=== PATIENT | female | born 1950 | race Caucasian/White ===

== ENCOUNTER 2018-05-29 18:07 | Inpatient (IN) | payer MEDICARE ==
[~2018-05-29 18:07] MED LIST: ISOVUE-370 76%-LOCM 1 ML ONE
[2018-05-29 18:42] LABS: #Basophils 0.1 thou/uL (0.0-0.2); #Eosinphils 0.1 thou/uL (0.0-0.7); #Lymphocytes 2.8 thou/uL (1.20-3.40); #Monocytes 1.2 thou/uL (0.11-0.59); #Neutrophils 8.5 thou/uL (1.40-6.50); %Basophils 0.5 % (0.0-1.0); %Eosinophils 0.7 % (0.0-10.0); %Lymphocytes 21.8 % (21.0-51.0); %Monocytes 9.7 % (0.0-10.0); %Neutrophils 67.4 % (42.0-75.0); Hemoglobin 13.2 g/dL (12.0-16.0); Mean Corpuscular Hemoglobin 29.9 pg (27.0-31.0); Mean Corpuscular Volume 90.4 fL (78.0-98.0); Platelet Count 285 thou/uL (130-400); RBC Distribution Width 12.3 % (11.5-14.5); Red Blood Cell (RBC) Count 4.43 mill/uL (4.20-5.40); White Blood Cell (WBC) Count 12.6 thou/uL (4.8-10.8)
[2018-05-29 19:07] LABS: ALT (SGPT) 16 U/L (8-55); AST (SGOT) 20 U/L (5-34); Albumin 4.3 g/dL (3.4-4.8); Alkaline Phosphatase 91 U/L (40-150); Anion Gap 18 mmol/L (10-20); BUN (Urea Nitrogen) 27 mg/dL (9.8-20.1); Bilirubin, Total 0.7 mg/dL (0.2-1.2); Calc. Creatinine Clearance 0 mL/min (70-130); Calcium 9.9 mg/dL (7.8-10.44); Carbon Dioxide 20 mmol/L (23-31); Chloride 100 mmol/L (98-107); Estimated GFR-MDRD 30; Glucose 111 mg/dL (80-115); Lipase 11 U/L (8-78); Protein, Total 8.3 g/dL (6.0-8.3); Sodium 134 mmol/L (136-145)
--- NOTE | 2018-05-29 19:25 | RAD ---
ONE VIEW CHEST: 05/29/18 HISTORY: Flank pain. COMPARISON: 12/11/14, 12/25/14. FINDINGS: Normal cardiac silhouette. Pulmonary vessels are within normal limits. Costophrenic angles are clear. There appear to be chronic changes, without consolidation or mass. No pneumothorax or osseous abnorm alities. IMPRESSION: No acute cardiopulmonary process. POS: [facility]
[2018-05-29 20:40] LABS: CKMB 0.9 ng/mL (0-6.6); Troponin I Less than 0.010 ng/mL (< 0.028)
[2018-05-29 21:12] LABS: Bilirubin Small (Negative); Blood, Urine Negative (Negative); Clarity CLOUDY (Clear); Glucose, Urine (Dipstick) Negative (Negative); Leukocyte Moderate (Negative); Nitrite Positive (Negative); Protein, Urine (Dipstick) 30 mg/dL (Neg-Trace); pH, Urine 5.5 (5.0-9.0)
[2018-05-29 21:14] LABS: Bacteria/HPF 4+ HPF (None Seen); Pathc Cast-AUWi Flag 1.88 (0-2.49); Squamous Epithelial 0-3 HPF (0-3)
--- NOTE | 2018-05-29 21:20 | CT ---
ABDOMEN CT WITH CONTRAST PELVIC CT WITH CONTRAST 05/29/18 HISTORY: Left lower quadrant pain. Flank pain. COMPARISON: 12/11/14. TECHNIQUE: An abdomen and pelvic CT are performed with IV contrast. Enteric contrast was not administered. Coron al reformatted images are submitted for interpretation. FINDINGS: ABDOMEN CT: Lung bases are clear. Heart size is normal. There is atherosclerosis of a nonaneurysmal aorta. Symmet deysi attenuation of the psoas muscles. Gallbladder is surgically absent. Portal vein is patent. The liver, spleen, pancreas, and adrenal glands have appropriate attenuation and enhancement. No darell rohepatic retrocrural or periportal lymphadenopathy. No mesenteric mass, lymphadenopathy, free air or free fluid. Hypodensity in the left kidney is too sm all to characterize but is statistically favored to be a cyst. Bilaterally, no hydronephrosis, nephro lithiasis, or perinephric fat stranding. Bilateral ureters have a normal caliber. No hydroureter, per iureteral fat stranding or ureterolithiasis. Limited evaluation of the alimentary canal by the lack of oral contrast. Gastric mucosa, duodenum and multiple normal caliber small bowel loops are normal. No evidence of small bowel obstruction. Ileoce karli junction is normal. Appendix is not appreciated. No inflammation of the cecal apex. Scattered fec al material in a nondistended, nondilated colon. PELVIC CT: The uterus is surgically absent. No pelvic mass, lymphadenopathy, free air or free fluid. There is ai r in the nondependent portion of the urinary bladder. Correlate for recent Hunter catheterization. Sergio dder mucosa is unremarkable. No lytic or blastic lesions within the osseous structures. IMPRESSION: 1. No acute abnormality in the abdomen or pelvis. Incidental findings as described above. 2. Air in the nondependent portion of the urinary bladder as described above. POS: [facility]
[2018-05-29 21:25] LABS: RBC/HPF None Seen HPF (0-3)
[2018-05-29] MEDS ORDERED: Ketorolac Tromethamine 30 MG/ML VIAL ONE (22:29)
[2018-05-29] MEDS ORDERED: cefTRIAXone\\ROCEPHIN 2 GM VIAL ONE (22:30)
[2018-05-30 02:00] VITALS: BMI 29.7
[2018-05-30] MEDS: Sodium Chloride 0.9% 1,000 ML IV SCH ×3 (03:12→22:54)
[2018-05-30 05:14] LABS: #Eosinphils 0.2 thou/uL (0.0-0.7); #Lymphocytes 2.5 thou/uL (1.20-3.40); #Monocytes 1.1 thou/uL (0.11-0.59); #Neutrophils 6.7 thou/uL (1.40-6.50); %Basophils 0.4 % (0.0-1.0); %Eosinophils 1.6 % (0.0-10.0); %Monocytes 10.4 % (0.0-10.0); %Neutrophils 63.5 % (42.0-75.0); Hemoglobin 11.6 g/dL (12.0-16.0); Mean Corpuscular HGB CONC 32.5 g/dL (32.0-36.0); Mean Corpuscular Hemoglobin 29.2 pg (27.0-31.0); Mean Corpuscular Volume 89.7 fL (78.0-98.0); Mean Platelet Volume 6.8 fL (7.4-10.4); Platelet Count 253 thou/uL (130-400); RBC Distribution Width 12.1 % (11.5-14.5); Red Blood Cell (RBC) Count 3.96 mill/uL (4.20-5.40); White Blood Cell (WBC) Count 10.5 thou/uL (4.8-10.8)
[2018-05-30 05:20] LABS: Anion Gap 14 mmol/L (10-20); BUN (Urea Nitrogen) 25 mg/dL (9.8-20.1); Calc. Creatinine Clearance 52 mL/min (70-130); Calcium 8.9 mg/dL (7.8-10.44); Carbon Dioxide 20 mmol/L (23-31); Chloride 104 mmol/L (98-107); Estimated GFR-MDRD 41; Glucose 163 mg/dL (80-115); Potassium 3.8 mmol/L (3.5-5.1); Sodium 134 mmol/L (136-145)
--- NOTE | 2018-05-30 06:37 | HP ---
CHIEF COMPLAINT: Left lower quadrant pain. HISTORY OF PRESENT ILLNESS: The patient is a very pleasant 68-year-old female with a history of UTIs in the past, who presents to the hospital with complaints of left lower quadrant pain since Friday. The patient states that she started having left lower quadrant pain. She also noticed some decrease d urination for the past few days; however, denies any dysuria. The patient did state that she did h ave some fevers and chills at home. The patient also complained of some lower back pain. The patien t denies any chest pain, shortness of breath. She had no nausea or vomiting. The patient states ronnie t she has been taking in a lot of water. The patient states that she just had left lower quadrant pa in, did not improve, so she came into the ER for further evaluation. The patient states that she zen durham has bowel movement every 3 days and according to her that is normal for her. PAST MEDICAL HISTORY: History of anxiety disorder, hyperlipidemia, history of pneumonias, reflux, di abetes, and apparently patient has had history of UTIs, even when she was younger. PAST SURGICAL HISTORY: She is status post cholecystectomy and status post hysterectomy. MEDICATIONS: This is from the last discharge, Nexium 40 mg daily, Zoloft 50 mg daily, Xanax 0.25 mg daily. She takes metoprolol 50 mg daily, Lyrica 75 mg daily. ALLERGIES: She is allergic to SULFA and PREDNISONE. FAMILY HISTORY: Positive for diabetes and hypertension. SOCIAL HISTORY: She lives with her family. Denies any alcohol use. Smokes a pack a day. REVIEW OF SYSTEMS: All negative except for the ones mentioned above in the HPI. PHYSICAL EXAMINATION: VITAL SIGNS: She is afebrile at 98.8, blood pressure is in the 110s/60, heart rates in the 100s, res pirations 16. GENERAL: She is awake, alert, oriented x3, does not appear in any distress. CARDIOVASCULAR: S1, S2 present. No murmurs, rubs or gallops. LUNGS: Clear to auscultation. No rhonchi, wheezes noted. ABDOMEN: Soft, mild pain upon palpation to right lower quadrant and left lower quadrant. She also h as positive costovertebral tenderness upon palpation bilaterally. NEUROLOGICAL: No focal deficits noted. EXTREMITIES: No edema. LABORATORY DATA: WBCs of 12.6, hemoglobin of 13.2, hematocrit of 40.0. She has no bands. Chemistry : Sodium of 134, potassium of 4.0, bicarbonate of 20, creatinine of 1.72, BUN of 27. Troponin x1 wa s negative. Her urine does indicate positive for nitrites. She also had a CT abdomen and pelvis, wh ich indicated she had air in the nondependent portion of the urinary bladder. She had no acute abnor malities otherwise. ASSESSMENT AND PLAN: The patient is a very pleasant 68-year-old female who presents to the hospital with complaints of left lower quadrant pain. 1. Sepsis, most likely secondary to urinary tract infection. We will continue patient's IV hydratio n. The patient received 2 liters in the ER, her blood pressures are in the low one-teens. We will c ontinue IV hydration. We will also start the patient on Rocephin. Her last two cultures from previo us studies indicated Enterobacter and E. coli which was sensitive to cephalosporins. We will start p atient on a cephalosporin. The patient at home is not on any kind of suppression therapy. She has h ad multiple urinary tract infections. She has never seen an urologist. Maybe, the patient will requ amos a chronic suppression antibiotic treatment. She did see Dr. Sarah during her last visit and that was a recommendation. 2. Urinary tract infection. We will continue current antibiotics. 3. Acute kidney injury. The patient's baseline creatinine 0.71. There is no hydronephrosis noted. We will continue to monitor. This is most likely secondary to dehydration and urinary tract infecti on. 4. Non-anion gap metabolic acidosis, most likely secondary to her underlying renal problems. We shannon l continue to monitor. 5. Deep venous thrombosis prophylaxis. We will put patient on subcu heparin.
[2018-05-30] MEDS ORDERED: Enoxaparin Sodium 40 MG/0.4 ML SYRINGE SC SCH (09:00)
[2018-05-30] MEDS: Heparin 5,000 UNITS/ML VIAL SC SCH ×3 (09:46→20:51)
[2018-05-30] MEDS: Ferrous Sulfate 325 MG TAB PO SCH ×2 (09:47→17:37)
[2018-05-30] MEDS: Acetaminophen 325 MG TAB PO PRN ×3 (09:47→23:00)
--- NOTE | 2018-05-30 13:56 | PDOC.PN ---
- Subjective Encounter Start Date: 05/30/18 Encounter Start Time: 08:35 -: old records requested/rev Pt seen and examined, chart reviewed in its entirety, this is my first visit with this patient Follow up for UTI and sepsis No F/C, no N/V/D/C, no CP or SOB. still having lower abdominal pain, though improved, denies hematuria, no dysuria, no CVA pain all systems reviewed and neg for all x as above - Objective MAR Reviewed: Yes Vital Signs & Weight: Vital Signs (12 hours) Temp Pulse Resp BP Pulse Ox 05/30/18 12:40 97.7 F 80 20 131/74 05/30/18 08:00 96.9 F L 96 18 138/62 99 05/30/18 04:00 98.4 F 104 H 17 126/69 96 Weight Admit Weight 173 lb Weight 173 lb I&O: 05/29/18 05/30/18 05/31/18 06:59 06:59 06:59 Intake Total 940 Output Total 350 Balance 590 Result Diagrams: 05/30/18 04:53 05/30/18 04:53 Radiology Reviewed by me: Yes EKG Reviewed by me: Yes Phys Exam - Physical Examination Constitutional: NAD HEENT: PERRLA, moist MMs, sclera anicteric, oral pharynx no lesions Neck: no nodes, no JVD, supple, full ROM Respiratory: no wheezing, no rales, no rhonchi, clear to auscultation bilateral Cardiovascular: RRR, no significant murmur, no rub Gastrointestinal: soft, non-tender, no distention, positive bowel sounds Musculoskeletal: no edema, pulses present Neurological: non-focal, normal sensation, moves all 4 limbs Lymphatic: no nodes Psychiatric: normal affect, A&O x 3 Skin: no rash, normal turgor, cap refill <2 seconds Dx/Plan (1) UTI (urinary tract infection) Status: Acute Qualifiers: Urinary tract infection type: acute cystitis (2) Sepsis Code(s): A41.9 - SEPSIS, UNSPECIFIED ORGANISM Status: Acute Qualifiers: Sepsis type: sepsis due to unspecified organism Qualified Code(s): A41.9 - Sepsis, unspecified organism (3) MALINI (acute kidney injury) Code(s): N17.9 - ACUTE KIDNEY FAILURE, UNSPECIFIED Status: Acute Comment: improved, Cr down to 1.37 (4) Abdominal pain Code(s): R10.9 - UNSPECIFIED ABDOMINAL PAIN Status: Acute Qualifiers: Abdominal location: lower abdomen, unspecified Qualified Code(s): R10.30 - Lower abdominal pain, unspecified Comment: suprapubic - Plan cont current plan of care, continue antibiotics, out of bed/ambulate * .
[2018-05-30] MEDS: cefTRIAXone\\ROCEPHIN 1 GM in Sodium Chloride 0.9% 100 ML IVPB SCH (22:54)
[2018-05-31 05:12] LABS: #Eosinphils 0.3 thou/uL (0.0-0.7); #Lymphocytes 2.4 thou/uL (1.20-3.40); #Monocytes 0.6 thou/uL (0.11-0.59); %Basophils 0.7 % (0.0-1.0); %Eosinophils 4.2 % (0.0-10.0); %Lymphocytes 38.4 % (21.0-51.0); %Monocytes 9.8 % (0.0-10.0); %Neutrophils 46.9 % (42.0-75.0); Hemoglobin 10.8 g/dL (12.0-16.0); Mean Corpuscular HGB CONC 32.8 g/dL (32.0-36.0); Mean Corpuscular Volume 91.2 fL (78.0-98.0); Mean Platelet Volume 6.6 fL (7.4-10.4); Platelet Count 228 thou/uL (130-400); RBC Distribution Width 12.1 % (11.5-14.5); Red Blood Cell (RBC) Count 3.59 mill/uL (4.20-5.40); White Blood Cell (WBC) Count 6.3 thou/uL (4.8-10.8)
[2018-05-31 05:37] LABS: Anion Gap 11 mmol/L (10-20); BUN (Urea Nitrogen) 12 mg/dL (9.8-20.1); Calc. Creatinine Clearance 86 mL/min (70-130); Calcium 8.5 mg/dL (7.8-10.44); Carbon Dioxide 20 mmol/L (23-31); Chloride 113 mmol/L (98-107); Estimated GFR-MDRD 72; Glucose 96 mg/dL (80-115); Magnesium 1.8 mg/dL (1.6-2.6); Potassium 4.2 mmol/L (3.5-5.1); Sodium 140 mmol/L (136-145)
[2018-05-31] MEDS: traMADol HCl 50 MG TAB PO PRN (05:56)
[2018-05-31] MEDS ORDERED: Prevnar 13-Val Conj/PF 0.5 ML SYRINGE IM ONE (09:00)
[2018-05-31] MEDS: Ferrous Sulfate 325 MG TAB PO SCH ×2 (09:01→16:01)
[2018-05-31] MEDS: Heparin 5,000 UNITS/ML VIAL SC SCH ×3 (09:01→21:21)
[2018-05-31] MEDS: Sodium Chloride 0.9% 1,000 ML IV SCH ×3 (09:02→22:16)
--- NOTE | 2018-05-31 15:35 | PDOC.PN ---
- Subjective Encounter Start Date: 05/31/18 Encounter Start Time: 15:34 REPORTS RECURRENT UTI'S. SHE ALSO ADMITS TO INCONTINENCE FOR YEARS AND INCOMPLETE BLADDER EMPTYING. BEST VOID IS ASSOCIATED WITH A COUGH. HAS NOT SEE A UROLOGIST. - Objective Vital Signs & Weight: Vital Signs (12 hours) Temp Pulse Resp BP Pulse Ox 05/31/18 12:00 97.8 F 88 18 126/60 96 05/31/18 08:00 98.0 F 87 16 141/63 H 99 05/31/18 04:00 96.9 F L 84 16 182/75 H 96 Weight Admit Weight 173 lb Weight 173 lb I&O: 05/30/18 05/31/18 06/01/18 06:59 06:59 06:59 Intake Total 940 2584 Output Total 350 1300 Balance 590 1284 Result Diagrams: 05/31/18 04:42 05/31/18 04:42 Phys Exam - Physical Examination Constitutional: NAD Respiratory: no wheezing, no rales, no rhonchi, clear to auscultation bilateral Cardiovascular: RRR, no significant murmur, no rub Gastrointestinal: soft, non-tender, no distention, positive bowel sounds Musculoskeletal: no edema Psychiatric: normal affect, A&O x 3 Dx/Plan (1) UTI (urinary tract infection) Status: Acute Qualifiers: Urinary tract infection type: acute cystitis Plan: NO URINE CULTURES WERE OBTAINED. BLOOD CULTURES ARE NEGATIVE, BUT WON'T TRULY BE AT 48 HOURS UNTIL TONIGHT. CONTINUE WITH IV ABX FOR NOW. IF CULTURES REMAIN NEGATIVE, SHE CAN LIKELY TRANSITION TO PO'S TOMORROW. (2) Urinary incontinence Code(s): R32 - UNSPECIFIED URINARY INCONTINENCE Status: Acute Plan: CONSULT UROLOGY. PATIENT NEEDS WORKUP. (3) Incomplete bladder emptying Code(s): R33.9 - RETENTION OF URINE, UNSPECIFIED Status: Acute Plan: CONSULT UROLOGY. PATIENT HAS RECURRENT UTI'S REQUIRING HOSPITALIZATION. SHE HAS INCONTINENCE THAT MAY BE OVERFLOW. NEEDS MORE THOROUGH EVAL. CHECK POST- VOID BLADDER SCAN. (4) MALINI (acute kidney injury) Code(s): N17.9 - ACUTE KIDNEY FAILURE, UNSPECIFIED Status: Acute Comment: CREATININE NORMALIZED. - Plan * .
[2018-05-31] MEDS: cefTRIAXone\\ROCEPHIN 1 GM in Sodium Chloride 0.9% 100 ML IVPB SCH (22:18)
--- NOTE | 2018-06-01 01:18 | CON ---
DATE OF CONSULTATION: 05/31/2018 REASON FOR CONSULTATION: Urinary tract infection. HISTORY OF PRESENT ILLNESS: Ms. Morel is a 68-year-old female who began developing pelvic discomfort without dysuria several days ago. She was seen in outpatient office and urinalysis demonstrated some bacteria. Culture was not obtained. Her symptom was worsened, so she presented to the [facility] for followup evaluation. Her primary complaint left him with left lower quadrant pain. She underwent an urinalysis in the emergency room at [facility], which demonstrated findings consistent with urinary tract infection. Unfortunately, culture was never obtained. Blood cultures were obtained, but they are negative. She does have a history of urinary tract infections in the past - most recently 1 year ago. A post void residual determination has been performed since admission and is satisfactory at 57cc She is allergic to SULFA. PAST MEDICAL HISTORY: Hyperlipidemia, pneumonia, reflux, diabetes mellitus. PAST SURGICAL HISTORY: Cholecystectomy, hysterectomy, cervical disk surgery. CURRENT MEDICATIONS: Flexeril, melatonin, Toprol-XL, Zoloft, Desyrel. ALLERGIES: LEVAQUIN and SULFA. SOCIAL HISTORY: Her is . Her son and his family live with her. She is a smoker. She denies excessive alcohol use. REVIEW OF SYSTEMS: Constitutional: She did have fever and chills when she presented to the hospital. She is no longer having any symptoms. HEENT: Negative for congestion, sinus pain. Respiratory: Denies cough or wheezing. Cardiovascular : Denies chest pain or palpitations. Gastrointestinal: Denies chronic constipation or diarrhea. Genitourinary: Please see history of present illness. PHYSICAL EXAMINATION: GENERAL: She is awake and alert. She is in no distress at this time. VITAL SIGNS: Temperature 98.4, blood pressure 138/82, pulse 82, respiratory rate 16. HEENT: Normocephalic, atraumatic. NECK: Supple, without masses. CHEST: Clear to auscultation. CARDIOVASCULAR: Regular rate and rhythm. ABDOMEN: Soft, nontender, no palpable masses. Liver and spleen are not palpable. No abdominal tenderness noted. IMAGING: CT scan demonstrates no evidence of obstruction. No signs of renal abscess. No obstructing stones. IMPRESSION: Ms. Morel is a 68-year-old female who has a presumed bacterial urinary tract infection. Her signs and symptoms are consistent with urinary tract infection. Unfortunately, urine culture was not obtained. She is responding well to IV antibiotic therapy. She does have a history of infections in the past, but the most recent one was over a year ago according to her. Her CT scan shows normal upper urinary tract without evidence of obstructive uropathy and her post void residual is within normal limits = <60cc There is no need for surgical intervention as there are no signs of abscess or obstructive uropathy. RECOMMENDATIONS: Outpatient oral antibiotic therapy based on urine culture results when available. Follow up in our office in 2 weeks. YASEMIN
[2018-06-01] MEDS: Ferrous Sulfate 325 MG TAB PO SCH ×2 (09:53→16:39)
[2018-06-01] MEDS: Heparin 5,000 UNITS/ML VIAL SC SCH ×3 (09:54→20:39)
[2018-06-01] MEDS: Sodium Chloride 0.9% 1,000 ML IV SCH (12:17)
[2018-06-01] MEDS ORDERED: Cyclobenzaprine 10 MG TAB PO PRN (12:51)
[2018-06-01] MEDS ORDERED: diphenhydrAMINE 25 MG CAP PO PRN (12:51)
[2018-06-01] MEDS ORDERED: Acetaminophen 325 MG TAB PO PRN (12:51)
[2018-06-01] MEDS ORDERED: PROVENTIL INHALER 6.7 G (200 INHALATIONS) INH PRN (12:51)
[2018-06-01] MEDS: hydrALAZINE 20 MG/ML VIAL SLOW IVP PRN ×2 (14:07→20:39)
[2018-06-01] MEDS: Famotidine 20 MG TAB PO SCH (20:39)
[2018-06-01] MEDS: traZODone HCl 50 MG TAB PO SCH (20:39)
[2018-06-01] MEDS: traMADol HCl 50 MG TAB PO PRN (22:27)
[2018-06-01] MEDS ORDERED: hydrALAZINE 20 MG/ML VIAL SLOW IVP SCH (22:30)
[2018-06-02] MEDS: cefTRIAXone\\ROCEPHIN 1 GM in Sodium Chloride 0.9% 100 ML IVPB SCH ×2 (00:07→22:13)
[2018-06-02] MEDS: hydrALAZINE 20 MG/ML VIAL SLOW IVP PRN (03:17)
[2018-06-02] MEDS: Acetaminophen 325 MG TAB PO PRN (03:18)
[2018-06-02] MEDS: Ferrous Sulfate 325 MG TAB PO SCH ×2 (09:32→16:56)
[2018-06-02] MEDS: Heparin 5,000 UNITS/ML VIAL SC SCH ×3 (09:32→22:14)
[2018-06-02] MEDS: Lisinopril 5 MG TAB PO SCH (09:33)
[2018-06-02] MEDS: Famotidine 20 MG TAB PO SCH ×2 (09:34→22:09)
--- NOTE | 2018-06-02 09:48 | PDOC.PN ---
- Subjective Encounter Start Date: 06/01/18 Encounter Start Time: 10:00 Patient is seen today. Lethargic, otherwise no Complaints. She is Admitted with UTI and Sepsis - Objective MAR Reviewed: Yes Vital Signs & Weight: Vital Signs (12 hours) Temp Pulse Resp BP BP BP Pulse Ox 06/02/18 09:33 88 139/64 06/02/18 07:35 98.8 F 88 16 139/64 96 06/02/18 04:46 130/61 06/02/18 03:30 99.6 F 81 20 190/79 H 96 06/02/18 03:17 85 190/79 H 06/01/18 23:41 99.2 F 85 18 140/59 L 97 06/01/18 22:39 78 198/90 H Weight Admit Weight 173 lb Weight 173 lb I&O: 06/01/18 06/02/18 06/03/18 06:59 06:59 06:59 Intake Total 1084 1695 650 Output Total 3550 2500 Balance -2466 1695 -1850 Result Diagrams: 05/31/18 04:42 05/31/18 04:42 Radiology Reviewed by me: Yes Phys Exam - Physical Examination HEENT: PERRLA, moist MMs Neck: no nodes, no JVD Respiratory: no wheezing, no rales Cardiovascular: RRR, no significant murmur Gastrointestinal: soft, non-tender Musculoskeletal: no edema, pulses present Dx/Plan (1) MALINI (acute kidney injury) Code(s): N17.9 - ACUTE KIDNEY FAILURE, UNSPECIFIED Status: Acute Comment: CREATININE NORMALIZED. Continue IV fluids. (2) Abdominal pain Code(s): R10.9 - UNSPECIFIED ABDOMINAL PAIN Status: Acute Qualifiers: Abdominal location: lower abdomen, unspecified Qualified Code(s): R10.30 - Lower abdominal pain, unspecified Comment: suprapubic (3) Incomplete bladder emptying Code(s): R33.9 - RETENTION OF URINE, UNSPECIFIED Status: Acute Comment: Continue to Monitor. (4) Sepsis Code(s): A41.9 - SEPSIS, UNSPECIFIED ORGANISM Status: Acute Qualifiers: Sepsis type: sepsis due to unspecified organism Qualified Code(s): A41.9 - Sepsis, unspecified organism Comment: Culture pending, continue with broad Spectrum. Urology see pt and suggested to continue Antibiotics. (5) UTI (urinary tract infection) Status: Acute Qualifiers: Urinary tract infection type: acute cystitis Comment: Cultures pending, [place]. Continue Abx. (6) Urinary incontinence Code(s): R32 - UNSPECIFIED URINARY INCONTINENCE Status: Acute (7) Acute pyelonephritis Code(s): N10 - ACUTE PYELONEPHRITIS Status: Acute Comment: Improving WBC. Continue Abx - Plan cont current plan of care, continue antibiotics, PT/OT, director social, respiratory therapy, incentive spirometry, DVT proph w/lovenox * . Review of Systems - Review of Systems Other: Unable to get ROS , she is very lethargic now. - Medications/Allergies Allergies/Adverse Reactions: Allergies Allergy/AdvReac Type Severity Reaction Status Date / Time levofloxacin [From Levaquin] Allergy Intermediate Hives Verified 05/30/18 00:27 Sulfa (Sulfonamide Allergy Verified 05/30/18 00:27 Antibiotics) Medications: Current Medications Acetaminophen (Tylenol) 650 mg PO Q4H PRN PRN Reason: Headache/Fever or Pain Last Admin: 06/02/18 03:18 Dose: 650 mg Albuterol Sulfate (Proventil Hfa) 3 puff INH Q4H PRN PRN Reason: SOB &/or Wheezing Cyclobenzaprine HCl (Flexeril) 10 mg PO TID PRN PRN Reason: PANIC ATTACKS Diphenhydramine HCl (Benadryl) 50 mg PO Q6HR PRN PRN Reason: Allergies Famotidine (Pepcid) 20 mg PO BID [facility] Last Admin: 06/02/18 09:34 Dose: 20 mg Ferrous Sulfate (Feosol) 325 mg PO BID-[facility] Last Admin: 06/02/18 09:32 Dose: 325 mg Heparin Sodium (Porcine) (Heparin) 5,000 units SC TID [facility] Last Admin: 06/02/18 09:32 Dose: 5,000 units Hydralazine HCl (Apresoline) 10 mg SLOW IVP Q4H PRN PRN Reason: systolic > 160 Last Admin: 06/02/18 03:17 Dose: 10 mg Ceftriaxone Sodium 1 gm/ (Sodium Chloride) 100 mls @ 200 mls/hr IVPB Q24HR [facility] Last Admin: 06/02/18 00:07 Dose: 100 mls Lisinopril (Zestril) 5 mg PO DAILY [facility] Last Admin: 06/02/18 09:33 Dose: 5 mg Metoprolol Succinate (Toprol Xl) 200 mg PO QPM [facility] Last Admin: 06/01/18 20:39 Dose: 200 mg Pantoprazole Sodium (Protonix) 40 mg PO HS [facility] Last Admin: 06/01/18 20:39 Dose: 40 mg Sertraline HCl (Zoloft) 50 mg PO HS [facility] Sodium Chloride (Flush - Normal Saline) 10 ml IVF Q12HR [facility] Last Admin: 06/02/18 09:34 Dose: 10 ml Sodium Chloride (Flush - Normal Saline) 10 ml IVF PRN PRN PRN Reason: Saline Flush Last Admin: 06/01/18 14:09 Dose: 10 ml Tramadol HCl (Ultram) 25 mg PO Q8H PRN PRN Reason: Pain Last Admin: 06/01/18 22:27 Dose: 25 mg Trazodone HCl (Desyrel) 100 mg PO HS [facility] Last Admin: 06/01/18 20:39 Dose: 100 mg
--- NOTE | 2018-06-02 14:17 | PDOC.PN ---
- Subjective Encounter Start Date: 06/02/18 Encounter Start Time: 11:00 Patient is seen today, alert and oriented. She feels very tired and weak, and is not comfortable going home today, She is admitted with UTI/ Sepsis. - Objective MAR Reviewed: Yes Vital Signs & Weight: Vital Signs (12 hours) Temp Pulse Resp BP BP BP Pulse Ox 06/02/18 09:33 88 139/64 06/02/18 07:35 98.8 F 88 16 139/64 96 06/02/18 04:46 130/61 06/02/18 03:30 99.6 F 81 20 190/79 H 96 06/02/18 03:17 85 190/79 H Weight Admit Weight 173 lb Weight 173 lb I&O: 06/01/18 06/02/18 06/03/18 06:59 06:59 06:59 Intake Total 1084 1695 650 Output Total 3550 2500 Balance -2466 1695 -1850 Result Diagrams: 05/31/18 04:42 05/31/18 04:42 Radiology Reviewed by me: Yes Dx/Plan (1) Sepsis Code(s): A41.9 - SEPSIS, UNSPECIFIED ORGANISM Status: Acute Qualifiers: Sepsis type: sepsis due to unspecified organism Qualified Code(s): A41.9 - Sepsis, unspecified organism Comment: Culture pending, continue with broad Spectrum. Urology see pt and suggested to continue Antibiotics. Will change to PO Abx tomorrow and dischagre pt Home, (2) MALINI (acute kidney injury) Code(s): N17.9 - ACUTE KIDNEY FAILURE, UNSPECIFIED Status: Acute Comment: CREATININE NORMALIZED. Continue IV fluids. (3) Abdominal pain Code(s): R10.9 - UNSPECIFIED ABDOMINAL PAIN Status: Acute Qualifiers: Abdominal location: lower abdomen, unspecified Qualified Code(s): R10.30 - Lower abdominal pain, unspecified Comment: suprapubic (4) Incomplete bladder emptying Code(s): R33.9 - RETENTION OF URINE, UNSPECIFIED Status: Acute Comment: Continue to Monitor. (5) UTI (urinary tract infection) Status: Acute Qualifiers: Urinary tract infection type: acute cystitis Comment: Cultures pending, [place]. Continue Abx. (6) Urinary incontinence Code(s): R32 - UNSPECIFIED URINARY INCONTINENCE Status: Acute (7) Acute pyelonephritis Code(s): N10 - ACUTE PYELONEPHRITIS Status: Acute Comment: Improving WBC. Continue Abx - Plan cont current plan of care, continue antibiotics, PT/OT, public health social worker, respiratory therapy, incentive spirometry, out of bed/ambulate, DVT proph w/SCDs * . Review of Systems - Review of Systems Constitutional: weakness, malaise Eyes: negative: Pain, Vision Change, Conjunctivae Inflammation, Eyelid Inflammation, Redness, Other ENT: negative: Ear Pain, Ear Discharge, Nose Pain, Nose Discharge, Nose Congestion, Mouth Pain, Mouth Swelling, Throat Pain, Throat Swelling, Other Respiratory: negative: Cough, Dry, Shortness of Breath, Hemoptysis, SOB with Excertion, Pleuritic Pain, Sputum, Wheezing Cardiovascular: negative: chest pain, palpitations, orthopnea, paroxysmal nocturnal dyspnea, edema, light headedness, other Gastrointestinal: negative: Nausea, Vomiting, Abdominal Pain, Diarrhea, Constipation, Melena, Hematochezia, Other Musculoskeletal: negative: Neck Pain, Shoulder Pain, Arm Pain, Back Pain, Hand Pain, Leg Pain, Foot Pain, Other Neurological: Weakness - Medications/Allergies Allergies/Adverse Reactions: Allergies Allergy/AdvReac Type Severity Reaction Status Date / Time levofloxacin [From Levaquin] Allergy Intermediate Hives Verified 05/30/18 00:27 Sulfa (Sulfonamide Allergy Verified 05/30/18 00:27 Antibiotics) Medications: Current Medications Acetaminophen (Tylenol) 650 mg PO Q4H PRN PRN Reason: Headache/Fever or Pain Last Admin: 06/02/18 03:18 Dose: 650 mg Albuterol Sulfate (Proventil Hfa) 3 puff INH Q4H PRN PRN Reason: SOB &/or Wheezing Cyclobenzaprine HCl (Flexeril) 10 mg PO TID PRN PRN Reason: PANIC ATTACKS Diphenhydramine HCl (Benadryl) 50 mg PO Q6HR PRN PRN Reason: Allergies Famotidine (Pepcid) 20 mg PO BID [facility] Last Admin: 06/02/18 09:34 Dose: 20 mg Ferrous Sulfate (Feosol) 325 mg PO BID[facility] Last Admin: 06/02/18 09:32 Dose: 325 mg Heparin Sodium (Porcine) (Heparin) 5,000 units SC TID [facility] Last Admin: 06/02/18 09:32 Dose: 5,000 units Hydralazine HCl (Apresoline) 10 mg SLOW IVP Q4H PRN PRN Reason: systolic > 160 Last Admin: 06/02/18 03:17 Dose: 10 mg Ceftriaxone Sodium 1 gm/ (Sodium Chloride) 100 mls @ 200 mls/hr IVPB Q24HR [facility] Last Admin: 06/02/18 00:07 Dose: 100 mls Lisinopril (Zestril) 5 mg PO DAILY [facility] Last Admin: 06/02/18 09:33 Dose: 5 mg Metoprolol Succinate (Toprol Xl) 200 mg PO QPM [facility] Last Admin: 06/01/18 20:39 Dose: 200 mg Pantoprazole Sodium (Protonix) 40 mg PO HS [facility] Last Admin: 06/01/18 20:39 Dose: 40 mg Sertraline HCl (Zoloft) 50 mg PO HS [facility] Sodium Chloride (Flush - Normal Saline) 10 ml IVF Q12HR [facility] Last Admin: 06/02/18 09:34 Dose: 10 ml Sodium Chloride (Flush - Normal Saline) 10 ml IVF PRN PRN PRN Reason: Saline Flush Last Admin: 06/01/18 14:09 Dose: 10 ml Tramadol HCl (Ultram) 25 mg PO Q8H PRN PRN Reason: Pain Last Admin: 06/01/18 22:27 Dose: 25 mg Trazodone HCl (Desyrel) 100 mg PO HS [facility] Last Admin: 06/01/18 20:39 Dose: 100 mg
[2018-06-02] MEDS: traZODone HCl 50 MG TAB PO SCH (22:10)
[2018-06-03] MEDS: Acetaminophen 325 MG TAB PO PRN (01:13)
[2018-06-03 05:33] LABS: #Basophils 0.1 thou/uL (0.0-0.2); #Eosinphils 0.2 thou/uL (0.0-0.7); #Lymphocytes 4.1 thou/uL (1.20-3.40); #Monocytes 0.5 thou/uL (0.11-0.59); #Neutrophils 4.7 thou/uL (1.40-6.50); %Basophils 0.7 % (0.0-1.0); %Eosinophils 1.7 % (0.0-10.0); %Lymphocytes 42.9 % (21.0-51.0); %Monocytes 5.5 % (0.0-10.0); %Neutrophils 49.2 % (42.0-75.0); Hemoglobin 11.6 g/dL (12.0-16.0); Mean Corpuscular HGB CONC 33.5 g/dL (32.0-36.0); Mean Corpuscular Hemoglobin 30.1 pg (27.0-31.0); Mean Corpuscular Volume 89.8 fL (78.0-98.0); Mean Platelet Volume 6.7 fL (7.4-10.4); Platelet Count 288 thou/uL (130-400); RBC Distribution Width 12.3 % (11.5-14.5); Red Blood Cell (RBC) Count 3.84 mill/uL (4.20-5.40); White Blood Cell (WBC) Count 9.5 thou/uL (4.8-10.8)
[2018-06-03 05:56] LABS: Anion Gap 15 mmol/L (10-20); BUN (Urea Nitrogen) 20 mg/dL (9.8-20.1); Calc. Creatinine Clearance 68 mL/min (70-130); Calcium 9.5 mg/dL (7.8-10.44); Carbon Dioxide 22 mmol/L (23-31); Chloride 107 mmol/L (98-107); Estimated GFR-MDRD 55; Glucose 116 mg/dL (80-115); Potassium 3.9 mmol/L (3.5-5.1); Sodium 140 mmol/L (136-145)
[2018-06-03] MEDS: Ferrous Sulfate 325 MG TAB PO SCH (08:54)
[2018-06-03] MEDS: Heparin 5,000 UNITS/ML VIAL SC SCH (08:54)
[2018-06-03] MEDS: Famotidine 20 MG TAB PO SCH (08:54)
[2018-06-03] MEDS: Lisinopril 5 MG TAB PO SCH (08:54)
[2018-06-03 10:33] VITALS: BP 108/60; TEMP 97.9
--- NOTE | 2018-06-03 13:01 | PDOC.PN ---
- Subjective Encounter Start Date: 06/03/18 Encounter Start Time: 07:35 Subjective: feels better, no sob - Objective MAR Reviewed: Yes Vital Signs & Weight: Vital Signs (12 hours) Temp Pulse Resp BP BP BP Pulse Ox 06/03/18 10:23 97.9 F 63 16 108/60 98 06/03/18 08:54 67 105/59 L 06/03/18 08:00 97.8 F 67 16 105/59 L 98 06/03/18 05:55 97.8 F 64 20 110/59 L Weight Admit Weight 173 lb Weight 173 lb I&O: 06/02/18 06/03/18 06/04/18 06:59 06:59 06:59 Intake Total 1695 1200 Output Total 2500 Balance 1695 -1300 Result Diagrams: 06/03/18 04:36 06/03/18 04:36 Phys Exam - Physical Examination HEENT: PERRLA, moist MMs Neck: no JVD, supple Respiratory: no wheezing, no rales Cardiovascular: RRR, no significant murmur Gastrointestinal: soft, non-tender, positive bowel sounds Musculoskeletal: no edema, pulses present Neurological: non-focal, moves all 4 limbs Psychiatric: A&O x 3 Dx/Plan (1) UTI (urinary tract infection) Status: Acute Qualifiers: Urinary tract infection type: acute cystitis (2) MALINI (acute kidney injury) Code(s): N17.9 - ACUTE KIDNEY FAILURE, UNSPECIFIED Status: Resolved (3) Abdominal pain Code(s): R10.9 - UNSPECIFIED ABDOMINAL PAIN Status: Resolved Qualifiers: Abdominal location: lower abdomen, unspecified Qualified Code(s): R10.30 - Lower abdominal pain, unspecified Comment: suprapubic (4) Sepsis Code(s): A41.9 - SEPSIS, UNSPECIFIED ORGANISM Status: Acute Qualifiers: Sepsis type: sepsis due to unspecified organism Qualified Code(s): A41.9 - Sepsis, unspecified organism (5) Chronic anemia Code(s): D64.9 - ANEMIA, UNSPECIFIED Status: Chronic - Plan macrobid x 5 days -: hemostable -: dc pt home * .
--- NOTE | 2018-06-03 14:37 | DIS ---
DATE OF ADMISSION: 05/29/2018 DATE OF DISCHARGE: 06/03/2018 DISCHARGE DISPOSITION: To home. PRIMARY DISCHARGE DIAGNOSES: Sepsis, urinary tract infection, acute kidney injury, and abdominal michael n, all of which are resolving, chronic anemia. PROCEDURES DONE DURING HOSPITALIZATION: Patient had CT of the abdomen and pelvis done, which showed no acute abnormality in the abdomen or pelvis. Chest x-ray done showed no acute cardiopulmonary abno rmalities. Blood cultures x2 no growth. Had a white count of 12 on the day of admission with discha rge numbers of 9.5. Initial BUN and creatinine were 27 and 1.7, discharge numbers of 20 and 1.0. On e set of cardiac enzymes were negative. UA was positive for nitrite, moderate leukoesterase, greater than 50 WBCs and 4+ bacteria on arrival. DISCHARGE MEDICATIONS: Macrobid 100 mg p.o. twice daily for another 4 days, ranitidine 150 mg p.o. d aily, Toprol-XL 200 mg p.o. q.p.m., Flexeril p.r.n., albuterol inhaler q.6 hourly p.r.n., sertraline 50 mg p.o. at bedtime, and trazodone 100 mg p.o. at bedtime. ALLERGIES: LEVAQUIN and SULFA. DISCHARGE PLAN: Patient to follow up with primary care physician in 1 week. BRIEF COURSE DURING HOSPITALIZATION: The patient initially came to ER with complaints of left lower quadrant abdominal pain. She also noticed decreased urination for the past few days, but denied dysu davey. On arrival in the ER, she was found to have had urinary tract infection. She had a CT of the a bdomen and pelvis done, which did not show any obstructive uropathy. Patient was on IV antibiotics a nd has been transitioned over to Macrobid at the time of discharge. She has received IV ceftriaxone for nearly 5 days prior to discharge. She is ambulating and eating well prior to discharge. Please see a [id number] documentation on [facility] for the day of discharge.
--- NOTE | 2018-06-06 16:17 | EKG ---
Test Reason : Blood Pressure : / mmHG Vent. Rate : 115 BPM Atrial Rate : 115 BPM P-R Int : 158 ms QRS Dur : 092 ms QT Int : 322 ms P-R-T Axes : 070 010 079 degrees QTc Int : 445 ms Sinus tachycardia Otherwise normal ECG Confirmed by STEPHIE CHAVEZ ([id number]), assistant film editor NORBERTO BRIONES ([id number]) on 06/06/2018 4:17:05 PM Referred By: Confirmed By:STEPHIE CHAVEZ
== END 2018-06-03 11:27 | disposition home or self-care (01) | DRG 872 ==
LOC: ERS 18:07 → 2NO 23:45 → T4-A 06-02 15:52
PROVIDERS: ADMIT Internal Medicine; ATTEND Internal Medicine
DX: A41.9 Sepsis, unspecified organism (principal); N30.00 Acute cystitis without hematuria; N17.9 Acute kidney failure, unspecified; N10 Acute pyelonephritis; E87.2 Acidosis; D64.9 Anemia, unspecified; K21.9 Gastro-esophageal reflux disease without esophagitis; I10 Essential (primary) hypertension; J44.9 Chronic obstructive pulmonary disease, unspecified; F32.9 Major depressive disorder, single episode, unspecified; F17.210 Nicotine dependence, cigarettes, uncomplicated; F41.9 Anxiety disorder, unspecified; E78.5 Hyperlipidemia, unspecified; Z87.01 Personal history of pneumonia (recurrent); E11.9 Type 2 diabetes mellitus without complications; E86.0 Dehydration
CPT/HCPCS: 36415; 71045; 74177; 80048; 80053; 81003; 81015; 82553; 83605; 83690; 83735; 84484; 85025; 87040; 93005; 96361; 96374; 96375; A4216; J0360; J0696; J1644; J1885; J7050

== ENCOUNTER 2018-06-21 08:54 | Emergency (ER) | payer MEDICARE ==
[2018-06-21] MEDS ORDERED: hydrOXYzine 25 MG TAB ONE (09:11)
[2018-06-21 09:40] LABS: #Basophils 0.1 thou/uL (0.0-0.2); #Eosinphils 0.3 thou/uL (0.0-0.7); #Lymphocytes 4.5 thou/uL (1.20-3.40); #Monocytes 0.8 thou/uL (0.11-0.59); #Neutrophils 4.4 thou/uL (1.40-6.50); %Basophils 1.3 % (0.0-1.0); %Eosinophils 3.2 % (0.0-10.0); %Lymphocytes 44.3 % (21.0-51.0); %Monocytes 7.7 % (0.0-10.0); %Neutrophils 43.5 % (42.0-75.0); Hemoglobin 13.1 g/dL (12.0-16.0); Mean Corpuscular HGB CONC 34.1 g/dL (32.0-36.0); Mean Corpuscular Hemoglobin 30.5 pg (27.0-31.0); Mean Corpuscular Volume 89.4 fL (78.0-98.0); Mean Platelet Volume 7.3 fL (7.4-10.4); Platelet Count 252 thou/uL (130-400); RBC Distribution Width 12.7 % (11.5-14.5); White Blood Cell (WBC) Count 10.2 thou/uL (4.8-10.8)
--- NOTE | 2018-06-21 09:43 | RAD ---
FRONTAL VIEW CHEST: COMPARISON: 05/29/18. INDICATION: Emergency exam, urinary symptoms. FINDINGS: There is no consolidation, effusion, or pneumothorax. No free air beneath the hemidiaphragms. Cardi ac silhouette is within normal limits of size for portable technique. Osseous structures intact. IMPRESSION: No focal consolidation. POS: [facility]
[2018-06-21] MEDS ORDERED: Lorazepam 2 MG/ML VIAL ONE (09:51)
[2018-06-21 10:01] LABS: ALT (SGPT) 27 U/L (8-55); AST (SGOT) 19 U/L (5-34); Albumin 4.2 g/dL (3.4-4.8); Alcohol Less than 10 mg/dL (Less than 10); Alkaline Phosphatase 89 U/L (40-150); Anion Gap 15 mmol/L (10-20); BUN (Urea Nitrogen) 12 mg/dL (9.8-20.1); Bilirubin, Total 0.3 mg/dL (0.2-1.2); Calc. Creatinine Clearance 0 mL/min (70-130); Calcium 9.6 mg/dL (7.8-10.44); Carbon Dioxide 20 mmol/L (23-31); Chloride 107 mmol/L (98-107); Estimated GFR-MDRD 57; Globulin 3.1 g/dL (2.4-3.5); Glucose 118 mg/dL (80-115); Lipase 60 U/L (8-78); Potassium 4.6 mmol/L (3.5-5.1); Protein, Total 7.3 g/dL (6.0-8.3); Salicylate Less than 8.0 mg/dL (15.0-30.0); Sodium 137 mmol/L (136-145)
[2018-06-21 10:08] LABS: CKMB 1.5 ng/mL (0-6.6); Troponin I Less than 0.010 ng/mL (< 0.028)
[2018-06-21 10:13] LABS: Bilirubin Negative (Negative); Blood, Urine Negative (Negative); Clarity CLEAR (Clear); Glucose, Urine (Dipstick) Negative (Negative); Leukocyte Negative (Negative); Nitrite Negative (Negative); Protein, Urine (Dipstick) Negative (Neg-Trace); Specific Gravity, Urine 1.008 (1.002-1.036); Urobilinogen 0.2 mg/dL (0.2-1.0)
[2018-06-21 10:41] LABS: Amphetamine Not Detected (NotDetected); Barbiturates Screen Not Detected (NotDetected); Benzodiazepine Screen Not Detected (NotDetected); Cocaine Metabolite Screen Not Detected (NotDetected); Medtox Control Line Valid? VALID (VALID); Medtox Reader # READER 1; Methadone Not Detected (NotDetected); Methamphetamine Not Detected (NotDetected); Opiate Screen Not Detected (NotDetected); Oxycodone Screen Not Detected (NotDetected); Phencyclidine (PCP) Not Detected (NotDetected); THC/Cannabinoid Screen Not Detected (NotDetected); Tricyclic Screen Detected (NotDetected)
--- NOTE | 2018-06-21 11:43 | CT ---
CT ABDOMEN AND PELVIS NONCONTRAST RENAL CALCULUS PROTOCOL: COMPARISON: 05/29/18. INDICATION: Flank pain. FINDINGS: There is motion artifact which degrades image quality and does limit the evaluation. No obvious urol ithiasis, or evidence of obstructive uropathy. There is moderate distention of the urinary bladder. Calcifications of the pelvis are redemonstrated, similar to prior exam indicative of phleboliths. T here is mild volume loss of the visualized lung bases. Scattered atherosclerosis is seen. There is moderate retained fecal material of the colon. The evaluation is otherwise limited on the basis of n oncontrast technique and due to motion distortion. IMPRESSION: Limited exam by patient motion. No obvious urolithiasis or obstructive uropathy. POS: [facility]
--- NOTE | 2018-06-21 11:51 | CT ---
CT OF THE BRAIN WITHOUT CONTRAST: INDICATION: History of altered mental status. COMPARISON: Prior exam dated 04/21/18. FINDINGS: No definite acute infarct, hemorrhage, or hydrocephalus is present. Septum pellucidum and third vent ricle are midline. The skull and extracranial soft tissues are within normal limits. IMPRESSION: No acute intracranial abnormality. POS: [facility]
--- NOTE | 2018-06-22 08:29 | HP ---
ER CONSULTATION PRIMARY CARE PHYSICIAN: Dr. Schaefer. CHIEF COMPLAINT: Altered mental status. HISTORY OF PRESENT ILLNESS: Ms. Morel is a very pleasant 68-year-old female that has a history of generalized anxiety. She was in her usual state of health until earlier this morning when her family who is at the bedside says that she was confused and looked as if her body was jerking off and on. They brought her to the emergency room due to concerns for possible infection. She was evaluated in the ER and had lab work and urinalysis, which was essentially negative. She even had a CT scan of th e brain, which showed no acute abnormality as well as an abdominal CT which was also essentially nega tive and in further discussion, the family members tell me that she does have a history of depression and anxiety and about a week ago, she was taken off of Zoloft and put on venlafaxine and she also re cently had been placed on Ambien to help her to sleep and it is suspected that these medication dupree es may have contributed to her current symptoms. By the time I see the patient, which is a couple of hours later she has returned back to her baseline level of functioning and essentially has no compla ints. REVIEW OF SYSTEMS: All systems were negative except for that mentioned in the history of present ill ness. PAST MEDICAL HISTORY: Significant for generalized anxiety; hyperlipidemia; recurrent pneumonias; gas troesophageal reflux disease; diabetes mellitus, type 2. PAST SURGICAL HISTORY: She has had a cholecystectomy and hysterectomy. ALLERGIES: SULFA and PREDNISONE. FAMILY HISTORY: Significant for diabetes and hypertension. SOCIAL HISTORY: She is a nonsmoker, nondrinker. She is a FULL CODE and she lives with family. CURRENT MEDICATIONS: Include Ambien 5-10 mg at bedtime as needed, metoprolol 200 mg daily, venlafaxi ne 37.5 mg daily, cyclobenzaprine 10 mg t.i.d., Zantac 150 mg daily, and Proventil inhaler as needed. PHYSICAL EXAMINATION: GENERAL: She is alert and oriented. She appears to be in no acute distress. VITAL SIGNS: Her blood pressure was 177/89, heart rate 86, respiratory rate of 18 and she is afebril e. HEENT: Her pupils are equal, round, and reactive. Extraocular muscles are intact. Her sclerae are anicteric. Throat: There is no erythema, no exudates. NECK: No adenopathy, no bruits. LUNGS: Clear to auscultation. There is no wheezing, no rales. CARDIOVASCULAR: She has a normal S1, S2. There is no S3 or S4. No murmurs, clicks or rubs. ABDOMEN: Soft, nontender, nondistended. Positive for bowel sounds. There is no rebound or guarding . EXTREMITIES: No clubbing, cyanosis, no edema. NEUROLOGIC: The exam is grossly nonfocal. LABORATORY DATA: Urine drug screen was positive for tricyclics. The white blood cell count was 10.2 , hemoglobin 13.1, hematocrit is 38.5, platelet count is 256. Sodium 137, potassium 4.6, chloride is 107, CO2 is 20, BUN of 12, creatinine 0.97, glucose is 118, troponin is less than 0.010. Urinalysis was negative. ASSESSMENT AND PLAN: This is a pleasant 68-year-old female that presented to the emergency room with altered mental status. I suspect this is likely as a result of her medications. She is 68 years ol d and some of the medications that she was taking are not ideal in patients who are over 65; for exam ple, the Ambien and also cyclobenzaprine at the current dose. She may have had some symptoms related to withdrawing the Zoloft. Therefore, for recommendations going forward. We recommend decreasing t he dose of cyclobenzaprine to 5 mg instead of 10, discontinue the Ambien altogether and this is with the understanding that the patient will likely have some difficulty with sleep for the first couple o f days and have also discussed sleep hygiene. We will also stop the venlafaxine and have recommended that she did not try taking Benadryl or other medications over the counter and to have close followu p with her primary care physician with referral to a psychiatrist as well as possibly needing a psych ologist for counseling such as with sleep hygiene and possibly cognitive behavioral therapy.
== END 2018-06-21 18:32 | disposition home or self-care (01) ==
LOC: ERS 08:54
DX: G24.01 Drug induced subacute dyskinesia (principal); R41.82 Altered mental status, unspecified; K21.9 Gastro-esophageal reflux disease without esophagitis; I10 Essential (primary) hypertension; J44.9 Chronic obstructive pulmonary disease, unspecified; F32.9 Major depressive disorder, single episode, unspecified; F17.210 Nicotine dependence, cigarettes, uncomplicated; Z79.899 Other long term (current) drug therapy
CPT/HCPCS: 36415; 51701; 70450; 71045; 74176; 80053; 80306; 80307; 81003; 82553; 83605; 83690; 83735; 84443; 84484; 85025; 93005; 96361; 96374; A4353; J2060

== ENCOUNTER 2019-03-28 20:07 | Inpatient (IN) | payer MEDICARE ==
[2019-03-28] MEDS ORDERED: Piperacillin/Tazobactam 4.5 GM VIAL ONE (20:36)
[2019-03-28] MEDS ORDERED: Acetaminophen 325 MG Suppository ONE (20:37)
[2019-03-28 21:01] LABS: INR-International Normal Ratio 1.1; Prothrombin Time 14.7 SEC (12.0-14.7)
[2019-03-28 21:11] LABS: Band 19 % (5-11); Hemoglobin 11.8 g/dL (12.0-16.0); Lymphocytes 4 % (21-51); MDiff Complete? YES; Mean Corpuscular HGB CONC 32.9 g/dL (32.0-36.0); Mean Corpuscular Hemoglobin 29.4 pg (27.0-31.0); Mean Corpuscular Volume 89.4 fL (78.0-98.0); Mean Platelet Volume 7.5 fL (7.4-10.4); Monocytes 2 % (0-10); Neutrophil 75 % (42-75); Platelet Count 170 thou/uL (130-400); RBC Distribution Width 13.1 % (11.5-14.5); Red Blood Cell (RBC) Count 4.02 mill/uL (4.20-5.40); White Blood Cell (WBC) Count 10.4 thou/uL (4.8-10.8)
[2019-03-28 21:13] LABS: ALT (SGPT) 17 U/L (8-55); AST (SGOT) 20 U/L (5-34); Albumin 3.9 g/dL (3.4-4.8); Alkaline Phosphatase 112 U/L (40-150); Anion Gap 16 mmol/L (10-20); BUN (Urea Nitrogen) 16 mg/dL (9.8-20.1); Bilirubin, Total 0.9 mg/dL (0.2-1.2); Calc. Creatinine Clearance 0 mL/min (70-130); Calcium 8.8 mg/dL (7.8-10.44); Carbon Dioxide 21 mmol/L (23-31); Chloride 103 mmol/L (98-107); Estimated GFR-MDRD 50; Globulin 2.9 g/dL (2.4-3.5); Glucose 176 mg/dL (80-115); Potassium 4.1 mmol/L (3.5-5.1); Protein, Total 6.8 g/dL (6.0-8.3); Sodium 136 mmol/L (136-145)
[2019-03-28 21:17] LABS: Bilirubin Negative (Negative); Blood, Urine Small (Negative); Clarity CLEAR (Clear); Glucose, Urine (Dipstick) Negative (Negative); Leukocyte Trace (Negative); Nitrite Negative (Negative); Protein, Urine (Dipstick) 30 mg/dL (Neg-Trace); Specific Gravity, Urine 1.008 (1.002-1.036); Urobilinogen 0.2 mg/dL (0.2-1.0)
[2019-03-28 21:17] LABS: Acetaminophen Less than 6.0 mcg/mL (10.0-30.0); Alcohol Less than 10 mg/dL (Less than 10); Salicylate Less than 8.0 mg/dL (15.0-30.0)
[2019-03-28 21:18] LABS: Bacteria/HPF None Seen HPF (None Seen); Hyaline Casts/LPF 0-3 HYALINE CAST LPF (0-3 Hyaline); RBC/HPF 0-3 HPF (0-3); Squamous Epithelial 0-3 HPF (0-3)
[2019-03-28 21:26] LABS: Amphetamine Not Detected (NotDetected); Barbiturates Screen Not Detected (NotDetected); Benzodiazepine Screen Not Detected (NotDetected); Cocaine Metabolite Screen Not Detected (NotDetected); Medtox Control Line Valid? VALID (VALID); Medtox Reader # READER 1; Methadone Not Detected (NotDetected); Methamphetamine Not Detected (NotDetected); Opiate Screen Detected (NotDetected); Oxycodone Screen Not Detected (NotDetected); Phencyclidine (PCP) Not Detected (NotDetected); THC/Cannabinoid Screen Not Detected (NotDetected); Tricyclic Screen Detected (NotDetected)
[2019-03-28] MEDS ORDERED: Vancomycin HCl 1.5 GM in Sodium Chloride 0.9% 250 ML 300 ML IVPB SCH (21:45)
--- NOTE | 2019-03-28 21:49 | RAD ---
PORTABLE CHEST: History: Cough. FINDINGS: Lungs are clear. No evidence of infiltrate. IMPRESSION: No acute abnormality. POS: [facility]
--- NOTE | 2019-03-28 23:09 | CT ---
CT BRAIN WITHOUT CONTRAST: History: Altered mental status. Comparison: 06-21-18 FINDINGS: No evidence of infarct, hemorrhage, midline shift, or abnormal extraaxial fluid collection is seen. T he ventricular size is appropriate and the basilar cisterns patent. The bony calvarium is intact. The visualized paranasal sinuses and mastoid air cells are well aerated. IMPRESSION: No CT evidence of acute intracranial process. POS: [facility]
--- NOTE | 2019-03-28 23:22 | CT ---
CT ABDOMEN AND PELVIS WITH IV CONTRAST: History: Sepsis. Diverticulitis. Diverticulitis. Burning with urination today. FINDINGS: Comparison is made from 05-29-18. Minimal patchy infiltrates are seen in the lung andres. There is infiltration of the liver without fo karli mass or abnormal biliary ductal dilatation. The spleen, pancreas, adrenal glands, and right kidne y are normal. There is a cyst in the left kidney. There is perinephric inflammatory change on the lef t. No hydroureteronephrosis is noted on either side. No free air, free fluid, or lymphadenopathy is seen in the abdomen or pelvis. There are vascular calc ifications without evidence of aneurysmal dilatation of the abdominal aorta. There are degenerative c hanges in the spine. The small bowel loops are not abnormally dilated. There is fecal material noted in the colon. IMPRESSION: 1. Findings are suspicious for left sided pyelonephritis. 2. Fatty liver. 3. Left renal cyst. POS: [facility]
[2019-03-29 00:52] LABS: Lactic Acid 1.5 mmol/L (0.5-2.2)
[2019-03-29] MEDS ORDERED: Ondansetron PF 4 MG/2 ML Vial IVP PRN (02:17)
[2019-03-29] MEDS ORDERED: Ondansetron ODT 4 MG TAB SL PRN (02:17)
[2019-03-29] MEDS: Acetaminophen 325 MG TAB PO PRN ×3 (02:31→18:07)
[2019-03-29] MEDS: Sodium Chloride 0.9% 1,000 ML IV SCH ×3 (02:32→19:15)
[2019-03-29] MEDS: Piperacillin/Tazobactam 4.5 GM in Sodium Chloride 0.9% 100 ML IVPB SCH ×2 (04:09→12:57)
[2019-03-29] MEDS: Morphine 2 MG/ML SYRINGE SLOW IVP SCH (04:09)
--- NOTE | 2019-03-29 05:10 | HP ---
PRIMARY CARE DOCTOR: Dr. Janie Schaefer. CODE STATUS: Full code. TIME OF EVALUATION: 3 a.m. CHIEF COMPLAINT: Change in mental status. HISTORY OF PRESENT ILLNESS: This is a 68-year-old female patient with past medical history of GERD, hypertension, and COPD, came to the hospital after having an episode of confusion. As per report, the daughter has brought in the patient to the hospital and has complained that the patient was not giving the right answers to her questions, also was reported that she has had some hallucinations. The symptoms started few days ago and has been insidiously gradually worsening to the point that was severe with no clear triggers and no alleviating factors. REVIEW OF SYSTEMS: The patient is not a good historian, not sure the complete review of systems is accurate. CONSTITUTIONAL: No fever, chills, or generalized weakness. RESPIRATORY: No cough, sputum production, or shortness of breath. CARDIOVASCULAR: No chest pain or palpitation. GASTROINTESTINAL: No nausea. No vomiting, diarrhea, or abdominal pain. PUBLIC HEALTH VETERINARIAN: Confusion. No headache or feeling lightheaded. GENITOURINARY: No burning on urination. EXTREMITIES: No leg swelling. All other systems reviewed were negative except for the findings mentioned above. PAST MEDICAL HISTORY: As mentioned in the HPI. SURGICAL HISTORY: Hysterectomy and cervical spine surgery. PSYCH HISTORY: Depression. SOCIAL HISTORY: Everyday smoker, half a pack per day. No alcohol. No drugs. KNOWN ALLERGIES: Levaquin. REPORTED MEDICATIONS: 1. Metoprolol. 2. Cyclobenzaprine. 3. Ranitidine. 4. Sertraline. 5. Lyrica. 6. Tylenol. 7. Codeine No.3. PHYSICAL EXAMINATION: VITAL SIGNS: On presentation, blood pressure 187/82 with heart rate 114, respiratory rate was 18, temperature 103.1, oxygen saturation 92 on room air. GENERAL APPEARANCE: The patient is alert, can answer simple questions. HEENT: Eyes; Normal conjunctivae. Moist oral mucosa. Anicteric. No JVD. RESPIRATORY: Bilateral air entry. No rales. No wheezes. Symmetric expansion. CARDIOVASCULAR: Normal rate, regular rhythm. No murmurs. No gallop. No edema. ABDOMEN: Soft. Normal bowel sounds. MUSCULOSKELETAL: Baseline range of motion and strength. No tenderness. SKIN: Warm and intact. No pallor. No rash. No redness. Peripheral pulses are present. Capillary refill seems to be intact. NEUROLOGIC: No evidence of any new focal weakness. Baseline speech. Cranial nerves seems to be intact. PSYCH: The patient is in good mood, unable to fully explore, seems to be somewhat confused. LABORATORY DATA: EKG was reviewed. The patient has sinus tachycardia with some PACs, ventricular rate 113, W[place] 144, QRS 98, QT corrected Chest x-ray was reviewed, the patient has no acute abnormalities. Brain CT was reviewed, the patient has no CT evidence of acute intracranial process. Abdomen and pelvis CT was reviewed, findings suspicious for left-sided pyelonephritis, fatty liver, and left renal cyst. LABORATORY DATA: Reviewed. The patient has white count of 10.4, hemoglobin 11.8, MCV 89.4, platelet count 270. PT 14.7, INR 1.1. Chemistry; sodium 136, potassium 4.1, chloride 103, carbon dioxide 21, anion gap 16, BUN 16, creatinine 1.10, GFR 50, glucose 176, lactic acid 2.4 and the second one 1.5, calcium 8.8, total bilirubin 0.9. LFTs were negative. Alkaline phosphatase is 112, ammonia 24. Serum total protein 6.8, albumin 3.9, globulin 2.9, albumin and globulin ratio is 1.3. It was reviewed that the patient has white count of 7 to 10. Toxicology, opiates were detected and tricyclics were detected. ASSESSMENT AND PLAN: The patient will be placed in the hospital with following medical problems: 1. Acute encephalopathy, likely secondary to underlying sepsis. We will treat underlying condition. The patient will need support as inpatient. 2. Possible sepsis. The patient has fever. The patient has tachycardia. The patient has a positive UA, likely source is urinary tract infection, we will continue antibiotics, follow cultures, adjust treatment as per sensitivity. 3. Uncontrolled hypertension. The patient has systolic blood pressure of 187 on presentation. We will reconcile home medication. We will adjust treatment as needed. We will not treat aggressively due to underlying sepsis. 4. History of gastroesophageal reflux disease. Reconcile home medications. 5. History of chronic obstructive pulmonary disease. This is chronic, seems to be stable, reconcile home medications. 6. Deep venous thrombosis prophylaxis. Job ID: [id number]
--- NOTE | 2019-03-29 07:33 | PDOC.PN ---
- Subjective Encounter Start Date: 03/29/19 Encounter Start Time: 10:00 Subjective: Continued fever and AMS. - Objective Resuscitation Status - Order Detail: 03/29/19 04:02 Resuscitation Status Routine Resuscitation Status: FULL: Full Resuscitation MAR Reviewed: Yes Vital Signs & Weight: Vital Signs (12 hours) Temp Pulse Resp BP Pulse Ox 03/29/19 06:22 66 18 94 L 03/29/19 04:05 99.1 F 103 H 16 114/66 94 L 03/29/19 02:54 96 18 95 03/29/19 02:10 96 03/29/19 02:00 98.2 F 96 16 144/67 H 95 Weight Weight 183 lb 6.4 oz Result Diagrams: 04/05/19 06:05 04/05/19 06:05 Dx/Plan (1) Sepsis Code(s): A41.9 - SEPSIS, UNSPECIFIED ORGANISM Status: Acute Qualifiers: Comment: normal WBC, but with tachycardia, fever, confusion, and elevated lactic acid. Resolving with fluids and antibiotics (2) Acute pyelonephritis Code(s): N10 - ACUTE PYELONEPHRITIS Status: Acute Comment: continue IV meropenem - Plan cont current plan of care, continue antibiotics, PT/OT, DVT proph w/lovenox E. coli starting to grow in blood. Aready on adequate IV antibiotics. * . - Discharge Day Encounter end time: 10:20
[2019-03-29] MEDS ORDERED: Enoxaparin Sodium 40 MG/0.4 ML SYRINGE SC SCH (09:00)
[2019-03-29] MEDS: Guaifenesin DM 100-10/5 ML UDCUP PO PRN (15:17)
[2019-03-29] MEDS: Morphine 2 MG/ML SYRINGE SLOW IVP PRN (18:01)
[2019-03-29 19:25] LABS: #Lymphocytes 0.7 thou/uL (1.20-3.40); #Monocytes 0.5 thou/uL (0.11-0.59); %Eosinophils 0.1 % (0.0-10.0); %Lymphocytes 8.9 % (21.0-51.0); %Monocytes 5.8 % (0.0-10.0); %Neutrophils 85.3 % (42.0-75.0); Hemoglobin 10.1 g/dL (12.0-16.0); Mean Corpuscular HGB CONC 32.5 g/dL (32.0-36.0); Mean Corpuscular Hemoglobin 29.3 pg (27.0-31.0); Mean Corpuscular Volume 90.1 fL (78.0-98.0); Mean Platelet Volume 7.8 fL (7.4-10.4); Platelet Count 123 thou/uL (130-400); RBC Distribution Width 13.1 % (11.5-14.5); Red Blood Cell (RBC) Count 3.45 mill/uL (4.20-5.40); White Blood Cell (WBC) Count 8.2 thou/uL (4.8-10.8)
[2019-03-29] MEDS ORDERED: Ibuprofen 200 MG TAB PO SCH (19:30)
[2019-03-29] MEDS ORDERED: Furosemide 40 MG/4 ML VIAL ONE (19:31)
[2019-03-29 19:44] LABS: ALT (SGPT) 15 U/L (8-55); AST (SGOT) 19 U/L (5-34); Albumin 3.2 g/dL (3.4-4.8); Alkaline Phosphatase 96 U/L (40-150); Anion Gap 16 mmol/L (10-20); BUN (Urea Nitrogen) 10 mg/dL (9.8-20.1); Bilirubin, Total 0.9 mg/dL (0.2-1.2); Calc. Creatinine Clearance 77 mL/min (70-130); Calcium 8.3 mg/dL (7.8-10.44); Carbon Dioxide 16 mmol/L (23-31); Chloride 107 mmol/L (98-107); Estimated GFR-MDRD 60; Glucose 168 mg/dL (80-115); Potassium 3.5 mmol/L (3.5-5.1); Protein, Total 6.2 g/dL (6.0-8.3); Sodium 135 mmol/L (136-145)
--- NOTE | 2019-03-29 19:46 | RAD ---
Radiograph chest one view: 03/29/2019 7:28 PM HISTORY: 68-year-old female with cough and dyspnea COMPARISON: 03/28/2018 at 8:34 PM FINDINGS: There is a new finding of bilateral heterogeneously distributed mild mixed interstitial and alveolar infiltrates, in the left mid and lower lung zones, and in the periphery of the right upper, mid, and lower lung zones. This is most dense in the right upper lobe where it has the appearance suspicio us for pneumonia. There is no cardiomegaly. No effacement of lateral costophrenic angles. No pneumothorax. IMPRESSION: Multifocal new bilateral mild infiltrates, evidence for bilateral pneumonia
[2019-03-29] MEDS ORDERED: Furosemide 40 MG/4 ML VIAL SLOW IVP SCH (20:15)
[2019-03-29 23:22] LABS: Lactic Acid 2.1 mmol/L (0.5-2.2)
[2019-03-30] MEDS: Morphine 2 MG/ML SYRINGE SLOW IVP PRN ×5 (00:19→22:57)
[2019-03-30] MEDS: Piperacillin/Tazobactam 4.5 GM in Sodium Chloride 0.9% 100 ML IVPB SCH (00:20)
--- NOTE | 2019-03-30 00:20 | PDOC.EVN ---
Event Note - Event Note Event Note: code green-activated due to persistent fever, and tachycardia, episode of fever lasted more than 2 hours with persistent tachycardia ~140-150, with borderline hemodynamic instability, pt with respiratory distress, with cxr showing multilobar bilateral infiltrates, will step up to meropenem, since pt has been worsening on zosyn, pt has positive blood cultures to e coli, will monitor closely, upgrade to imcu.
[2019-03-30] MEDS ORDERED: Cyclobenzaprine 10 MG TAB PO PRN (00:25)
[2019-03-30] MEDS ORDERED: PROVENTIL INHALER 6.7 G (200 INHALATIONS) INH PRN (00:25)
[2019-03-30] MEDS: MEROPENEM 1 GM/50 ML 1 GM in Premix Bag 1 BAG IVPB SCH ×3 (01:24→17:39)
[2019-03-30] MEDS: Acetaminophen 325 MG TAB PO PRN ×4 (04:53→22:59)
[2019-03-30] MEDS: Morphine 2 MG/ML SYRINGE SLOW IVP SCH ×2 (04:57→09:11)
[2019-03-30] MEDS: Sodium Chloride 0.9% 1,000 ML IV SCH ×4 (04:58→20:50)
[2019-03-30 05:36] LABS: #Lymphocytes 0.7 thou/uL (1.20-3.40); #Monocytes 0.7 thou/uL (0.11-0.59); #Neutrophils 8.2 thou/uL (1.40-6.50); %Basophils 0.2 % (0.0-1.0); %Eosinophils 0.2 % (0.0-10.0); %Lymphocytes 7.5 % (21.0-51.0); %Monocytes 7.3 % (0.0-10.0); %Neutrophils 84.9 % (42.0-75.0); Hemoglobin 10.7 g/dL (12.0-16.0); Mean Corpuscular HGB CONC 31.4 g/dL (32.0-36.0); Mean Corpuscular Hemoglobin 28.7 pg (27.0-31.0); Mean Corpuscular Volume 91.6 fL (78.0-98.0); Platelet Count 144 thou/uL (130-400); Red Blood Cell (RBC) Count 3.71 mill/uL (4.20-5.40); White Blood Cell (WBC) Count 9.6 thou/uL (4.8-10.8)
[2019-03-30 05:53] LABS: Anion Gap 15 mmol/L (10-20); BUN (Urea Nitrogen) 11 mg/dL (9.8-20.1); Calc. Creatinine Clearance 77 mL/min (70-130); Calcium 8.8 mg/dL (7.8-10.44); Carbon Dioxide 20 mmol/L (23-31); Chloride 105 mmol/L (98-107); Estimated GFR-MDRD 60; Glucose 158 mg/dL (80-115); Potassium 3.7 mmol/L (3.5-5.1); Sodium 136 mmol/L (136-145)
[2019-03-30] MEDS ORDERED: Ibuprofen 200 MG TAB PO SCH ×2 (06:00→23:52)
[2019-03-30] MEDS: Enoxaparin Sodium 40 MG/0.4 ML SYRINGE SC SCH (09:10)
[2019-03-30] MEDS: Famotidine 20 MG TAB PO SCH ×2 (09:10→20:48)
[2019-03-30] MEDS: Vancomycin HCl 750 MG in Sodium Chloride 0.9% 250 ML 250 ML IVPB SCH ×2 (13:51→21:02)
--- NOTE | 2019-03-30 14:30 | PDOC.PN ---
- Subjective Encounter Start Date: 03/30/19 Encounter Start Time: 09:40 Pt seen for followup re: sepsis. Feels slightly better. - Objective Resuscitation Status - Order Detail: 03/29/19 04:02 Resuscitation Status Routine Resuscitation Status: FULL: Full Resuscitation Vital Signs & Weight: Vital Signs (12 hours) Temp Pulse Resp Pulse Ox 03/30/19 14:20 105 H 24 H 03/30/19 14:03 99.4 F 03/30/19 10:40 98.2 F 03/30/19 10:39 102 H 26 H 96 03/30/19 08:40 97.1 F L 03/30/19 08:00 97.8 F 95 03/30/19 07:23 100 03/30/19 07:20 113 H 32 H 100 03/30/19 07:11 99.7 F H 03/30/19 05:54 102.9 F H 03/30/19 05:20 102.5 F H 03/30/19 04:00 98.7 F Weight Weight 183 lb 6.4 oz Most Recent Monitor Data Heart Rate from ECG 113 NIBP 132/64 NIBP BP-Mean 86 Respiration from ECG 30 SpO2 98 I&O: 03/29/19 03/30/19 03/31/19 06:59 06:59 06:59 Intake Total 2850 Output Total 1325 Balance 1525 Result Diagrams: 03/30/19 05:17 03/30/19 05:17 Additional Labs: Accuchecks 03/29/19 19:11 POC Glucose 175 H Phys Exam - Physical Examination Obese HEENT: moist MMs, sclera anicteric, oral pharynx no lesions, 2+ tonsils Neck: no nodes, no JVD, supple, full ROM Respiratory: clear to auscultation bilateral S1, s2, tachy, reg Gastrointestinal: soft, no distention, positive bowel sounds L CVA tenderness Neurological: moves all 4 limbs Psychiatric: normal affect, A&O x 3 Dx/Plan (1) Sepsis Code(s): A41.9 - SEPSIS, UNSPECIFIED ORGANISM Status: Acute Comment: secondary to pyelonephritis, continue IV meropenem and vancomycin (2) Acute pyelonephritis Code(s): N10 - ACUTE PYELONEPHRITIS Status: Acute Comment: continue IV meropenem and vancomycin (3) UTI (urinary tract infection) Status: Acute Qualifiers: Urinary tract infection type: acute cystitis Comment: continue IV meropenem for E. coli UTI (4) Bacteremia Code(s): R78.81 - BACTEREMIA Status: Acute Comment: continue IV meropenem for E. coli bacteremia (5) GERD (gastroesophageal reflux disease) Code(s): K21.9 - GASTRO-ESOPHAGEAL REFLUX DISEASE WITHOUT ESOPHAGITIS Status: Chronic Comment: stable, continue Pepcid (6) Hypertension Code(s): I10 - ESSENTIAL (PRIMARY) HYPERTENSION Status: Chronic Comment: controlled (7) Depression Code(s): F32.9 - MAJOR DEPRESSIVE DISORDER, SINGLE EPISODE, UNSPECIFIED Status : Chronic Comment: mild, stable (8) COPD (chronic obstructive pulmonary disease) Status: Chronic Comment: stable - Plan * . Review of Systems - Review of Systems Constitutional: fever, chills, weakness. negative: sweats, malaise Respiratory: SOB with Excertion. negative: Cough, Shortness of Breath, Pleuritic Pain, Wheezing Cardiovascular: negative: chest pain, palpitations, orthopnea, paroxysmal nocturnal dyspnea, edema, light headedness Gastrointestinal: Abdominal Pain. negative: Nausea, Vomiting, Diarrhea, Constipation, Melena, Hematochezia Skin: negative: Rash, Lesions, Shantanu, Bruising - Medications/Allergies Allergies/Adverse Reactions: Allergies Allergy/AdvReac Type Severity Reaction Status Date / Time levofloxacin [From Levaquin] Allergy Intermediate Hives Verified 05/30/18 00:27 Sulfa (Sulfonamide Allergy Verified 05/30/18 00:27 Antibiotics) Medications: Current Medications Acetaminophen (Tylenol) 650 mg PO Q4H PRN PRN Reason: Headache/Fever or Pain Stop: 04/02/19 12:09 Last Admin: 03/30/19 13:51 Dose: 650 mg Albuterol Sulfate (Proventil Hfa) 3 puff INH Q4H PRN PRN Reason: SOB &/or Wheezing Albuterol/Ipratropium (Duoneb) 3 ml NEB [id number] [facility] Last Admin: 03/30/19 14:20 Dose: 3 ml Enoxaparin Sodium (Lovenox) 40 mg SC 0900 [facility] Last Admin: 03/30/19 09:10 Dose: 40 mg Famotidine (Pepcid) 20 mg PO BID [facility] Last Admin: 03/30/19 09:10 Dose: 20 mg Guaifenesin/Dextromethorphan (Robitussin Dm) 15 ml PO Q4H PRN PRN Reason: Cough Last Admin: 03/29/19 15:17 Dose: 15 ml Sodium Chloride (Normal Saline 0.9%) 1,000 mls @ 120 mls/hr IV .Q8H20M [facility] Stop: 03/31/19 12:09 Last Admin: 03/30/19 14:02 Dose: Not Given Meropenem 1 gm/ Device 50 mls @ 100 mls/hr IVPB 0100,0900,1700 [facility] Last Admin: 03/30/19 09:10 Dose: 50 mls Vancomycin HCl 750 mg/ Sodium (Chloride) 250 mls @ 250 mls/hr IVPB 1000,2200 [facility] Last Admin: 03/30/19 13:51 Dose: 250 mls Metoprolol Succinate (Toprol Xl) 200 mg PO QPM [facility] Miscellaneous Medication (Pharmacy To Dose) 1 each IVPB ONE [facility] Stop: 04/29/19 00:46 Morphine Sulfate (Morphine) 2 mg SLOW IVP NOW [facility] Stop: 04/03/19 05:45 Last Admin: 03/30/19 09:11 Dose: 2 mg Morphine Sulfate (Morphine) 2 mg SLOW IVP Q4H PRN PRN Reason: Pain Last Admin: 03/30/19 14:00 Dose: 2 mg Ondansetron HCl (Zofran) 4 mg IVP Q6H PRN PRN Reason: Nausea/Vomiting Stop: 04/02/19 12:09 Ondansetron HCl (Zofran Odt) 4 mg SL Q6H PRN PRN Reason: Nausea/Vomiting Stop: 04/02/19 12:09 Pregabalin (Lyrica) 75 mg PO HS YAW Sertraline HCl (Zoloft) 50 mg PO HS YAW Sodium Chloride (Flush - Normal Saline) 10 ml IVF PRN PRN PRN Reason: Saline Flush Stop: 04/02/19 12:09 Last Admin: 03/30/19 00:20 Dose: 10 ml
[2019-03-30] MEDS: Pregabalin 75 MG CAP PO SCH (20:48)
[2019-03-30] MEDS: Guaifenesin DM 100-10/5 ML UDCUP PO PRN (20:50)
[2019-03-30] MEDS ORDERED: Ibuprofen 600 MG TAB PO SCH (23:45)
--- NOTE | 2019-03-31 00:27 | CON ---
DATE OF CONSULTATION: 03/30/2019 HISTORY OF PRESENT ILLNESS: Ms. Morel is a very pleasant woman, who presented with abdominal discomfort yesterday. She had an abdomen and pelvis CT that showed renal finding suggestive of pyelonephritis. She also was confused. Head CT did not reveal any cause of her confusion. Her daughter says she is almost back to normal now. She is growing E coli from both blood and urine. Sensitivities are not back yet. I was consulted because of her presence in the Critical Care Unit. She was apparently transferred into the intermediate care unit with tachypnea just after midnight. Chest x-ray showed increased interstitial markings. It would in my opinion, because it is suggestive of adult respiratory distress syndrome. She was given Lasix and improved. PAST MEDICAL HISTORY: Remarkable for, 1. Frequent urinary tract infections. 2. History of lipid disorder. 3. History of reflux disease. 4. History of diabetes. 5. Status post cholecystectomy. 6. Status post hysterectomy. 7. History of an EGD with gastric biopsies showing gastritis. She was having abdominal pain at that time as well. 8. History of gastroenteritis with Shigella, seen by Dr. Sarah back in 2014. FAMILY HISTORY: Negative for lung disease in early age. SOCIAL HISTORY: Not obtained. REVIEW OF SYSTEMS: Ten point review of systems completed, otherwise negative. MEDICATIONS: At home were reviewed. PHYSICAL EXAMINATION: VITAL SIGNS: She is afebrile. Blood pressure 142/61, heart rate is 119, respiratory rates in the 20s, oximetry is 95%. HEENT: Pupils are equal. Sclerae anicteric. NECK: Supple. No lymphadenopathy. LUNGS: Clear. HEART: Regular rhythm, S1 and S2 normal. ABDOMEN: Soft and nontender. Her daughter said that she grimaced to abdominal palpation last night. EXTREMITIES: Without clubbing, cyanosis, or edema. NEUROLOGIC: Nonfocal. LABORATORY DATA: White count 9.6, hemoglobin 10.7, platelets 144. Sodium 136, potassium 3.7, chloride 105, bicarb 20, BUN 11, and creatinine 0.94. IMPRESSION: 1. Pyelonephritis with bacteremia. 2. Clinical sepsis. 3. Adult respiratory distress syndrome. 4. Obesity with deconditioning. 5. History of frequent urinary tract infections. I will be happy to follow the other physicians caring for her. TIME SPENT: This is a 50-minute consult, with greater than 50% of the time spent on the unit coordinating care. Job ID: [id number] MTDD
[2019-03-31] MEDS: MEROPENEM 1 GM/50 ML 1 GM in Premix Bag 1 BAG IVPB SCH ×3 (00:29→17:13)
[2019-03-31] MEDS ORDERED: Sodium Chloride 0.9% 500 ML IVPB SCH (03:30)
[2019-03-31] MEDS: Acetaminophen 325 MG TAB PO PRN ×4 (04:09→18:13)
[2019-03-31] MEDS: Sodium Chloride 0.9% 1,000 ML IV SCH (05:39)
[2019-03-31] MEDS: Morphine 2 MG/ML SYRINGE SLOW IVP PRN ×2 (06:07→23:18)
[2019-03-31] MEDS: Famotidine 20 MG TAB PO SCH ×2 (08:50→21:05)
[2019-03-31] MEDS: Enoxaparin Sodium 40 MG/0.4 ML SYRINGE SC SCH (08:51)
--- NOTE | 2019-03-31 10:04 | PRG ---
DATE OF SERVICE: 03/31/2019 SUBJECTIVE: Ms. Morel says she is feeling better today. She still has a little abdominal discomfort. OBJECTIVE: VITAL SIGNS: She is afebrile, heart rate 95, respiratory rates in the 20s, oximetry is 92% on 3 L, and blood pressure 120/65. LUNGS: Clear. HEART: Regular rhythm. ABDOMEN: Soft and minimally tender on the left side to deep palpation. EXTREMITIES: Without asymmetry or edema. LABORATORY DATA: The E. coli growing from the urine was resistant to ampicillin (she has recently been placed on ampicillin for symptoms of the UTI). Sodium 136, potassium 3.7, chloride 105, and bicarb 20 yesterday. There is no Chem-7 today or CBC today. IMPRESSION: 1. Pyelonephritis, clinically improving. 2. Bacteremia secondary to Escherichia coli involving her left kidney. 3. History of frequent urinary tract infections. Macrodantin was on her list of medicines, but she says she was not taking Macrodantin. 4. History of reflux disease. 5. History of obstructive lung disease. 6. Encephalopathy secondary to sepsis, it is resolved. 7. Tobacco use up until this admission. 8. Noncardiogenic pulmonary edema associated with pyelonephritis, clinically improving each day. We will continue to follow the other physicians caring for. She probably transitioned to p.o. antimicrobial therapy soon. Job ID: [id number]
[2019-03-31] MEDS ORDERED: Haloperidol Lactate 5 MG/ML VIAL IM SCH (15:00)
[2019-03-31 16:33] LABS: Actual Bicarbonate (HCO3a) 21.7 mEq/L (22-28); Base Excess (BEa) -3.4 mEq/L (-2.0 to +3.0); CO2 Tension 39.2 mmHg (35.0-45.0); Calcium, Ionized 1.15 mmol/L (1.12-1.30); Carboxyhemoglobin (COHb) 0.8 gm% (0.0-3.0); Hemoglobin (Hb) 10.9 g/dL (12.0-16.0); Potassium - ABG Lab 3.62 mmol/L (3.70-5.30); pH, Arterial 7.36 (7.35-7.45)
[2019-03-31] MEDS ORDERED: Furosemide 40 MG/4 ML VIAL ONE (16:45)
[2019-03-31] MEDS ORDERED: Furosemide 100 MG/10 ML VIAL SLOW IVP SCH (17:00)
--- NOTE | 2019-03-31 17:02 | RAD ---
Exam: Chest one view HISTORY:Shortness of breath. Cough. Respiratory distress. Comparison: 03/29/2019 FINDINGS: Cardiac silhouette:Upper normal heart size. Atherosclerosis of the aorta is noted Pulmonary vessels: Normal Costophrenic angles: Clear LUNGS: Worsening interstitial and alveolar opacities. Pneumothorax: None Osseous abnormalities: None IMPRESSION: 1. Worsening interstitial and alveolar opacity due to edema or infiltrate. Continued surveillance is recommended.
[2019-03-31 17:09] LABS: O2 Tension (PaO2) 51.5 mmHg (> 80.0)
[2019-03-31 17:11] LABS: Puncture Site RRA
--- NOTE | 2019-03-31 17:52 | PDOC.PN ---
- Subjective Encounter Start Date: 03/31/19 Encounter Start Time: 09:20 Pt seen for followup re: sepsis. Has fevers. Abdo pain is better. - Objective Resuscitation Status - Order Detail: 03/29/19 04:02 Resuscitation Status Routine Resuscitation Status: FULL: Full Resuscitation MAR Reviewed: Yes Vital Signs & Weight: Vital Signs (12 hours) Temp Pulse Resp Pulse Ox 03/31/19 17:13 94 L 03/31/19 16:52 90 L 03/31/19 16:00 85 L 03/31/19 15:58 99.8 F H 03/31/19 15:09 100.2 F H 03/31/19 14:33 108 H 32 H 92 L 03/31/19 14:13 100.3 F H 03/31/19 12:00 98.9 F 89 L 03/31/19 11:00 99.8 F H 03/31/19 10:50 98 32 H 03/31/19 08:29 98.3 F 03/31/19 08:00 90 L 03/31/19 07:41 98.1 F 03/31/19 07:38 95 28 H 92 L Weight Weight 196 lb 6.4 oz Most Recent Monitor Data Heart Rate from ECG 106 NIBP 167/96 NIBP BP-Mean 119 Respiration from ECG 38 SpO2 93 I&O: 03/30/19 03/31/19 04/01/19 06:59 06:59 06:59 Intake Total 2850 825 Output Total 1325 100 Balance 1525 725 Result Diagrams: 03/30/19 05:17 03/30/19 05:17 EKG Reviewed by me: Yes (Tele: NSR) Phys Exam - Physical Examination Obese HEENT: moist MMs Neck: supple Respiratory: clear to auscultation bilateral Cardiovascular: RRR Gastrointestinal: soft L sided tenderness, no guarding or rigidity Neurological: moves all 4 limbs Psychiatric: normal affect Dx/Plan (1) Sepsis Code(s): A41.9 - SEPSIS, UNSPECIFIED ORGANISM Status: Acute Comment: continue IV meropenem and discontinue vancomycin (2) Acute pyelonephritis Code(s): N10 - ACUTE PYELONEPHRITIS Status: Acute Comment: continue IV meropenem (3) UTI (urinary tract infection) Status: Acute Qualifiers: Urinary tract infection type: acute cystitis Comment: continue IV meropenem for E. coli UTI (4) Bacteremia Code(s): R78.81 - BACTEREMIA Status: Acute Comment: continue IV meropenem for E. coli bacteremia (5) Volume overload Code(s): E87.70 - FLUID OVERLOAD, UNSPECIFIED Status: Acute Comment: pt received furosemide (6) GERD (gastroesophageal reflux disease) Code(s): K21.9 - GASTRO-ESOPHAGEAL REFLUX DISEASE WITHOUT ESOPHAGITIS Status: Chronic Comment: stable (7) Hypertension Code(s): I10 - ESSENTIAL (PRIMARY) HYPERTENSION Status: Chronic Comment: controlled (8) Depression Code(s): F32.9 - MAJOR DEPRESSIVE DISORDER, SINGLE EPISODE, UNSPECIFIED Status : Chronic Comment: mild, stable (9) COPD (chronic obstructive pulmonary disease) Status: Chronic Comment: stable - Plan * . Review of Systems - Review of Systems Constitutional: fever, sweats, weakness. negative: chills, malaise Gastrointestinal: Abdominal Pain. negative: Nausea, Vomiting, Diarrhea, Constipation, Melena, Hematochezia - Medications/Allergies Allergies/Adverse Reactions: Allergies Allergy/AdvReac Type Severity Reaction Status Date / Time levofloxacin [From Levaquin] Allergy Intermediate Hives Verified 05/30/18 00:27 Sulfa (Sulfonamide Allergy Verified 05/30/18 00:27 Antibiotics) Medications: Current Medications Acetaminophen (Tylenol) 650 mg PO Q4H PRN PRN Reason: Headache/Fever or Pain Stop: 04/02/19 12:09 Last Admin: 03/31/19 14:10 Dose: 650 mg Albuterol Sulfate (Proventil Hfa) 3 puff INH Q4H PRN PRN Reason: SOB &/or Wheezing Albuterol/Ipratropium (Duoneb) 3 ml NEB [id number] [facility] Last Admin: 03/31/19 14:33 Dose: 3 ml Enoxaparin Sodium (Lovenox) 40 mg SC 0900 [facility] Last Admin: 03/31/19 08:51 Dose: 40 mg Famotidine (Pepcid) 20 mg PO BID [facility] Last Admin: 03/31/19 08:50 Dose: 20 mg Furosemide (Lasix) 60 mg SLOW IVP NOW [facility] Stop: 03/31/19 19:00 Last Admin: 03/31/19 16:50 Dose: 60 mg Guaifenesin/Dextromethorphan (Robitussin Dm) 15 ml PO Q4H PRN PRN Reason: Cough Last Admin: 03/30/19 20:50 Dose: 15 ml Meropenem 1 gm/ Device 50 mls @ 100 mls/hr IVPB 0100,0900,1700 [facility] Last Admin: 03/31/19 17:13 Dose: 50 mls Metoprolol Succinate (Toprol Xl) 200 mg PO QPM [facility] Last Admin: 03/30/19 20:48 Dose: 200 mg Morphine Sulfate (Morphine) 2 mg SLOW IVP NOW [facility] Stop: 04/03/19 05:45 Last Admin: 03/30/19 09:11 Dose: 2 mg Morphine Sulfate (Morphine) 2 mg SLOW IVP Q4H PRN PRN Reason: Pain Last Admin: 03/31/19 06:07 Dose: 2 mg Ondansetron HCl (Zofran) 4 mg IVP Q6H PRN PRN Reason: Nausea/Vomiting Stop: 04/02/19 12:09 Ondansetron HCl (Zofran Odt) 4 mg SL Q6H PRN PRN Reason: Nausea/Vomiting Stop: 04/02/19 12:09 Last Admin: 03/30/19 22:59 Dose: 4 mg Pregabalin (Lyrica) 75 mg PO HS [facility] Last Admin: 03/30/19 20:48 Dose: 75 mg Sertraline HCl (Zoloft) 50 mg PO HS [facility] Last Admin: 03/30/19 20:49 Dose: 50 mg Sodium Chloride (Flush - Normal Saline) 10 ml IVF PRN PRN PRN Reason: Saline Flush Stop: 04/02/19 12:09 Last Admin: 03/30/19 20:53 Dose: 10 ml
[2019-03-31 20:32] LABS: Actual Bicarbonate (HCO3a) 23.5 mEq/L (22-28); Base Excess (BEa) -0.9 mEq/L (-2.0 to +3.0); CO2 Tension 38.1 mmHg (35.0-45.0); Calcium, Ionized 1.13 mmol/L (1.12-1.30); Carboxyhemoglobin (COHb) 0.8 gm% (0.0-3.0); Hemoglobin (Hb) 11.5 g/dL (12.0-16.0); Potassium - ABG Lab 3.66 mmol/L (3.70-5.30); pH, Arterial 7.41 (7.35-7.45)
[2019-03-31 20:51] LABS: ALV-art Gradient 280.265 (0-20); Puncture Site RBR
[2019-03-31] MEDS ORDERED: ALPRAZolam 0.25 MG TAB PO SCH (21:00)
[2019-03-31] MEDS: Pregabalin 75 MG CAP PO SCH (21:04)
[2019-04-01] MEDS: Acetaminophen 325 MG TAB PO PRN ×2 (00:28→09:09)
[2019-04-01] MEDS: MEROPENEM 1 GM/50 ML 1 GM in Premix Bag 1 BAG IVPB SCH ×3 (00:29→17:25)
[2019-04-01] MEDS ORDERED: Lorazepam 2 MG/ML VIAL SLOW IVP SCH (00:30)
[2019-04-01] MEDS ORDERED: Furosemide 20 MG/2 ML VIAL SLOW IVP SCH (01:00)
--- NOTE | 2019-04-01 01:08 | PRG ---
DATE OF SERVICE: 04/01/2019 Nurse called me to see the patient at bedside for delirium. This patient has E coli bacteremia secondary to urinary tract infection with E coli. Since morning, the patient is more tachypneic and hypoxic requiring high-flow oxygen. She had 2 ABGs so far, which showing hypoxia and high AA gradient and her x-ray is consistent with possible ARDS. The patient is becoming more and more agitated and that is why nurse is concerned about because she is interfering with her oxygen equipment. I saw this patient at bedside and evaluated. She is tachypneic with respiratory rate in 30s. Her saturation is 95% with high-flow oxygen through nasal cannula and she has tachycardia with pulse 113 and her blood pressure is 177 systolic. She is febrile. Her current agitation is explained by underlying infectious etiology and hypoxia and underlying pulmonary pathology. Dr. Baker already notified by the nurse about the patient's current condition and he is aware of this patient's condition. At this point, we will keep soft restraint as needed only with close supervision for her interference with equipment, but I would avoid giving her any sedatives because current respiratory drive is compensated. I advised nurse to notify on-call sales representative supervisor if condition deteriorates. Currently, I do not think she needs any intubation, but we have very low threshold if her respiratory drive decreases and CO2 retention starts. I would give her one dose of Lasix IV 20 mg. I advised nurse to repeat ABG and chest x-ray in the morning. The patient will need close monitoring in IMCU. Her condition is still critical. Job ID: [id number]
[2019-04-01] MEDS ORDERED: Propofol 1,000 MG/100 ML VIAL IV ONE (01:56)
[2019-04-01] MEDS ORDERED: Ventilator Sedation Protocol 1 EACH FS SCH (02:01)
[2019-04-01] MEDS ORDERED: Succinylcholine Chloride 200 MG/10 ML VIAL IVP SCH (02:01)
[2019-04-01] MEDS ORDERED: CCU Electrolyte Replacement 1 EACH FS ONE (02:01)
[2019-04-01] MEDS ORDERED: Potassium Chloride 40 MEQ in Sodium Chloride 0.9% 250 ML 250 ML IVPB PRN (02:09)
[2019-04-01] MEDS ORDERED: Potassium Phosphate 9 MMOL in Sodium Chloride 0.9% 100 ML IVPB PRN (02:09)
[2019-04-01] MEDS ORDERED: Potassium Phosphate 15 MMOL in Sodium Chloride 0.9% 250 ML 250 ML IV PRN (02:09)
[2019-04-01] MEDS ORDERED: Potassium Chloride 40 MEQ in Premix Bag 1 BAG IVPB PRN (02:09)
[2019-04-01] MEDS ORDERED: Lorazepam 2 MG/ML VIAL SLOW IVP PRN (02:09)
[2019-04-01] MEDS ORDERED: Vecuronium 10 MG VIAL IVP PRN (02:09)
[2019-04-01] MEDS ORDERED: Potassium Phosphate 12 MMOL in Sodium Chloride 0.9% 250 ML 250 ML IV PRN (02:09)
[2019-04-01] MEDS ORDERED: Fentanyl BOLUS 250 ML IVPB PRN (02:09)
[2019-04-01] MEDS ORDERED: Magnesium Oxide 400 MG TAB PO PRN ×2 (02:09)
[2019-04-01] MEDS ORDERED: Magnesium 2 GM/50 ML 2 GM in Premix Bag 1 BAG IVPB PRN (02:09)
[2019-04-01] MEDS ORDERED: Potassium Chloride 20 MEQ TAB PO PRN (02:09)
[2019-04-01] MEDS ORDERED: PHOS-NAK 1 PKT PACK PO PRN ×2 (02:09)
[2019-04-01] MEDS ORDERED: Morphine 2 MG/ML SYRINGE SLOW IVP PRN (02:09)
[2019-04-01] MEDS ORDERED: Propofol BOLUS 1,000 MG/100 ML VIAL IV PRN (02:09)
[2019-04-01] MEDS ORDERED: CCU ELECTROLYTE REPLACEMENT PROTOCOL FS PRN (02:09)
[2019-04-01] MEDS ORDERED: DISCONTINUE PREVIOUS NARCOTIC PAIN MEDICATIONS AND BENZODIAZEPINES FS SCH (02:09)
[2019-04-01] MEDS: Sodium Chloride 0.9% 1,000 ML IV SCH ×2 (02:21→20:15)
[2019-04-01] MEDS: fentaNYL Citrate/PF 2,000 MCG in Sodium Chloride 0.9% 60 ML IV SCH (02:23)
[2019-04-01] MEDS ORDERED: Vecuronium 10 MG VIAL ONE (02:24)
--- NOTE | 2019-04-01 02:29 | PRG ---
DATE OF SERVICE: 04/01/2019 35 minutes critical care time. SUBJECTIVE: Ms. Morel has continued to do poorly during the night. She is tachypneic despite high-flow oxygen. She is grabbing into mask, tearing off equipment, making nursing intervention impossible. I was called by the nurse about 1:15 a.m., stating that the patient is doing poorly. I had her transferred down to the CCU. I arrived about 15 minutes later. Using a GlideScope, I intubated on first attempt with a 7.5 endotracheal tube. Tube placement was confirmed by bronchoscopy. I then used a 2.0 Ambu bronchoscope to confirm placement of the endotracheal tube, which is about 2 cm above the carmella. The scope was then wedged into the right middle lobe and lavaged with about 100 mL of normal saline, and specimen was sent for culture. These procedures were tolerated well. She was given a total of 40 mg of etomidate and 100 mg of succinylcholine to facilitate the procedure. She was placed on sedation. I have added vancomycin to her antibiotic regimen. She is currently already on meropenem. Because she got etomidate, I will add steroids as etomidate can induce adrenal insufficiency. I will attempt to notify family. Job ID: [id number]
[2019-04-01 02:59] LABS: Actual Bicarbonate (HCO3a) 23.6 mEq/L (22-28); Base Excess (BEa) -2.9 mEq/L (-2.0 to +3.0); CO2 Tension 48.8 mmHg (35.0-45.0); Calcium, Ionized 1.12 mmol/L (1.12-1.30); Carboxyhemoglobin (COHb) 0.6 gm% (0.0-3.0); Hemoglobin (Hb) 10.5 g/dL (12.0-16.0); O2 Tension (PaO2) 376.7 mmHg (> 80.0); Potassium - ABG Lab 3.67 mmol/L (3.70-5.30)
[2019-04-01 03:04] LABS: Puncture Site RBR
[2019-04-01] MEDS: methylPREDNISolone Sod Succ 40 MG VIAL IVP SCH ×3 (05:06→17:24)
[2019-04-01] MEDS: Morphine 2 MG/ML SYRINGE SLOW IVP SCH (05:07)
[2019-04-01] MEDS: Vancomycin HCl 1 GM in Premix Bag 1 BAG IVPB SCH ×2 (09:06→20:15)
[2019-04-01] MEDS: Enoxaparin Sodium 40 MG/0.4 ML SYRINGE SC SCH (09:08)
[2019-04-01] MEDS: Famotidine/PF 20 mg/2ml Vial SLOW IVP SCH ×2 (09:09→20:12)
[2019-04-01] MEDS: Metoprolol Tartrate 100 MG TAB PER TUBE SCH ×2 (09:10→20:12)
[2019-04-01] MEDS: Propofol 1,000 MG/100 ML VIAL IV PRN ×2 (10:35→18:32)
[2019-04-01] MEDS ORDERED: Succinylcholine Chloride 200 MG/10 ML VIAL ONE (11:11)
[2019-04-01] MEDS: Bacteriostatic Water 30 ML VIAL FS PRN ×2 (12:59→17:24)
--- NOTE | 2019-04-01 19:20 | PDOC.PN ---
- Subjective Encounter Start Date: 04/01/19 Encounter Start Time: 09:40 Pt seen for followup re: acute respiratory failure. Intubated, nonverbal, could not complete ROS. - Objective Resuscitation Status - Order Detail: 03/29/19 04:02 Resuscitation Status Routine Resuscitation Status: FULL: Full Resuscitation MAR Reviewed: Yes Vital Signs & Weight: Vital Signs (12 hours) Temp Pulse Resp BP Pulse Ox 04/01/19 18:17 80 04/01/19 18:16 81 19 92 L 04/01/19 18:00 18 04/01/19 17:00 83 104/53 L 04/01/19 16:00 98.6 F 23 H 04/01/19 15:19 82 98/51 L 04/01/19 14:00 18 04/01/19 13:48 76 18 95 04/01/19 12:50 73 97/56 L 04/01/19 12:00 18 04/01/19 11:01 89 104/60 04/01/19 10:07 88 18 96 04/01/19 10:00 28 H 04/01/19 09:07 99 128/64 04/01/19 08:00 28 H 97 Weight Admit Weight 183 lb Weight 196 lb 6.4 oz Most Recent Monitor Data Heart Rate from ECG 79 NIBP 103/45 NIBP BP-Mean 64 Respiration from ECG 18 SpO2 93 I&O: 03/31/19 04/01/19 04/02/19 06:59 06:59 06:59 Intake Total 825 1454.1 1117.2 Output Total 100 960 345 Balance 725 494.1 772.2 Result Diagrams: 03/30/19 05:17 03/30/19 05:17 EKG Reviewed by me: Yes (Tele: NSR) Phys Exam - Physical Examination Intubated HEENT: moist MMs ETT Neck: no nodes Lalito crackles Cardiovascular: RRR Gastrointestinal: soft, positive bowel sounds Neurological: moves all 4 limbs Psychiatric: normal affect Dx/Plan (1) Acute respiratory failure with hypoxia and hypercapnia Code(s): J96.01 - ACUTE RESPIRATORY FAILURE WITH HYPOXIA; J96.02 - ACUTE RESPIRATORY FAILURE WITH HYPERCAPNIA Status: Acute Comment: Likely secondary to ARDS, pt was intubated last night, on vent in CCU. (2) Sepsis Code(s): A41.9 - SEPSIS, UNSPECIFIED ORGANISM Status: Acute Comment: continue IV meropenem. Vancomycin restarted. (3) Acute pyelonephritis Code(s): N10 - ACUTE PYELONEPHRITIS Status: Acute Comment: continue IV meropenem (4) UTI (urinary tract infection) Status: Acute Qualifiers: Urinary tract infection type: acute cystitis Comment: continue IV meropenem, pt has E. coli UTI (5) Bacteremia Code(s): R78.81 - BACTEREMIA Status: Acute Comment: continue IV meropenem, pt has E. coli bacteremia (6) Volume overload Code(s): E87.70 - FLUID OVERLOAD, UNSPECIFIED Status: Acute Comment: pt received furosemide last night, is on ventilator (7) GERD (gastroesophageal reflux disease) Code(s): K21.9 - GASTRO-ESOPHAGEAL REFLUX DISEASE WITHOUT ESOPHAGITIS Status: Chronic Comment: stable (8) Hypertension Code(s): I10 - ESSENTIAL (PRIMARY) HYPERTENSION Status: Chronic Comment: controlled (9) Depression Code(s): F32.9 - MAJOR DEPRESSIVE DISORDER, SINGLE EPISODE, UNSPECIFIED Status : Chronic Comment: stable (10) COPD (chronic obstructive pulmonary disease) Status: Chronic Comment: stable - Plan * . Review of Systems - Medications/Allergies Allergies/Adverse Reactions: Allergies Allergy/AdvReac Type Severity Reaction Status Date / Time levofloxacin [From Levaquin] Allergy Intermediate Hives Verified 05/30/18 00:27 Sulfa (Sulfonamide Allergy Verified 05/30/18 00:27 Antibiotics) Medications: Current Medications Acetaminophen (Tylenol) 650 mg PO Q4H PRN PRN Reason: Headache/Fever or Pain Stop: 04/02/19 12:09 Last Admin: 04/01/19 09:09 Dose: 650 mg Albuterol Sulfate (Proventil Hfa) 3 puff INH Q4H PRN PRN Reason: SOB &/or Wheezing Last Admin: 03/31/19 23:22 Dose: 3 puff Albuterol/Ipratropium (Duoneb) 3 ml NEB [id number] [facility] Last Admin: 04/01/19 18:16 Dose: 3 ml Enoxaparin Sodium (Lovenox) 40 mg SC 0900 [facility] Last Admin: 04/01/19 09:08 Dose: 40 mg Famotidine (Pepcid) 20 mg SLOW IVP BID [facility] Last Admin: 04/01/19 09:09 Dose: 20 mg Meropenem 1 gm/ Device 50 mls @ 100 mls/hr IVPB 0100,0900,1700 [facility] Last Admin: 04/01/19 17:25 Dose: 50 mls Sodium Chloride (Normal Saline 0.9%) 1,000 mls @ 50 mls/hr IV .Q20H [facility] Last Admin: 04/01/19 02:21 Dose: 1,000 mls Vancomycin HCl 1 gm/ Device 200 mls @ 200 mls/hr IVPB Q12HR [facility] Last Admin: 04/01/19 09:06 Dose: 200 mls Fentanyl Citrate 2,000 mcg/ (Sodium Chloride) 100 mls @ 0 mls/hr IV INF [facility]; Protocol Stop: 05/01/19 02:09 Last Admin: 04/01/19 02:23 Dose: 100 mls Fentanyl Citrate (Fentanyl Bolus) 250 mls @ 0 mls/hr IVPB PRN PRN PRN Reason: Breakthrough pain/agitation Stop: 05/01/19 02:09 Potassium Chloride 40 meq/ (Sodium Chloride) 270 mls @ 135 mls/hr IVPB ASDIR PRN PRN Reason: FOR SERUM K+ 2.5 - 3.5 Potassium Chloride 40 meq/ (Device) 100 mls @ 50 mls/hr IVPB ASDIR PRN PRN Reason: FOR SERUM K+ 2.5 - 3.5 Magnesium Sulfate 1 gm/ Sodium (Chloride) 102 mls @ 102 mls/hr IV PRN PRN PRN Reason: MAG LEVEL 1.4 - 2.0 Magnesium Sulfate 2 gm/ Device 50 mls @ 50 mls/hr IVPB ASDIR PRN PRN Reason: MAGNESIUM < 1.4 Potassium Phosphate 9 mmol/ (Sodium Chloride) 103 mls @ 25.75 mls/hr IVPB ASDIR PRN PRN Reason: Phosphate 1.0-1.8 Potassium Phosphate 12 mmol/ (Sodium Chloride) 254 mls @ 63.5 mls/hr IV ASDIR PRN PRN Reason: Serum phosphate 0.5-0.9 Potassium Phosphate 15 mmol/ (Sodium Chloride) 255 mls @ 63.75 mls/hr IV ASDIR PRN PRN Reason: Serum Phos < 0.5 Lorazepam (Ativan) 2 mg SLOW IVP Q1H PRN PRN Reason: Breakthrough agitation Stop: 05/01/19 02:09 Magnesium Oxide (Magnesium Oxide) 400 mg PO BIDPRN PRN PRN Reason: FOR SERUM MAG 1.4 - 2.0 Magnesium Oxide (Magnesium Oxide) 800 mg PO PRN PRN PRN Reason: FOR SERUM MAG < 1.4 Methylprednisolone Sodium Succinate (Solu-Medrol) 40 mg IVP Q6HR [facility] Last Admin: 04/01/19 17:24 Dose: 40 mg Metoprolol Tartrate (Lopressor) 100 mg PER TUBE BID [facility] Last Admin: 04/01/19 09:10 Dose: 100 mg Miscellaneous Medication (Phos-Nak) 1 pkt PO TIDPRN PRN PRN Reason: FOR PHOS LEVEL 1.0 - 1.8 Miscellaneous Medication (Phos-Nak) 2 pkt PO TIDPRN PRN PRN Reason: FOR PHOS LEVEL 0.5 - 1.0 Morphine Sulfate (Morphine) 2 mg SLOW IVP NOW [facility] Stop: 04/03/19 05:45 Last Admin: 04/01/19 05:07 Dose: Not Given Morphine Sulfate (Morphine) 2 mg SLOW IVP Q4H PRN PRN Reason: Pain Last Admin: 03/31/19 23:18 Dose: 2 mg Morphine Sulfate (Morphine) 2 mg SLOW IVP Q1H PRN PRN Reason: BREAKTHROUGH PAIN/Agitation Stop: 05/01/19 02:09 Discontinue Previous Narcotic Pain Medications And Benzodiazepines 1 each FS .ONE [facility] Stop: 05/01/19 02:09 Ccu Electrolyte (Replacement Protocol) 0 each FS PRN PRN PRN Reason: FOR ELECTROLYTE REPLACEMENT Potassium Chloride (K-Dur) 40 meq PO ASDIR PRN PRN Reason: FOR SERUM K+ 2.5 - 3.5 Potassium Chloride (Klor-Con) 40 meq PER TUBE ASDIR PRN PRN Reason: FOR SERUM K+ 2.5-3.5 Pregabalin (Lyrica) 75 mg PO HS [facility] Last Admin: 03/31/19 21:04 Dose: 75 mg Propofol (Diprivan) 1,000 mg IV INF PRN; Protocol PRN Reason: TO ACHIEVE GOAL RASS Stop: 05/01/19 02:09 Last Admin: 04/01/19 18:32 Dose: 1,000 mg Propofol (Diprivan Bolus) 20 mg IV Q5MIN PRN PRN Reason: BREAKTHROUGH AGITATION Stop: 05/01/19 02:09 Sertraline HCl (Zoloft) 50 mg PO HS [facility] Last Admin: 03/31/19 21:05 Dose: 50 mg Sodium Chloride (Flush - Normal Saline) 10 ml IVF PRN PRN PRN Reason: Saline Flush Stop: 04/02/19 12:09 Last Admin: 04/01/19 00:29 Dose: 10 ml Sterile Water (Bacteriostatic Water) 1 ml FS PRN PRN PRN Reason: RECONSTITUTION Last Admin: 04/01/19 17:24 Dose: 1 ml Vecuronium [place] (Norcuron) 10 mg IVP Q30MIN PRN PRN Reason: Agitation Last Admin: 04/01/19 02:21 Dose: 10 mg
[2019-04-01] MEDS: Pregabalin 75 MG CAP PO SCH (20:13)
[2019-04-02] MEDS: Morphine 2 MG/ML SYRINGE SLOW IVP SCH (04:34)
[2019-04-02] MEDS: methylPREDNISolone Sod Succ 40 MG VIAL IVP SCH ×4 (05:03→18:11)
[2019-04-02] MEDS: Bacteriostatic Water 30 ML VIAL FS PRN ×4 (05:03→18:19)
[2019-04-02] MEDS: Propofol 1,000 MG/100 ML VIAL IV PRN ×4 (05:09→21:05)
[2019-04-02 06:48] LABS: Actual Bicarbonate (HCO3a) 22.4 mEq/L (22-28); Base Excess (BEa) -2.8 mEq/L (-2.0 to +3.0); CO2 Tension 40.4 mmHg (35.0-45.0); Calcium, Ionized 1.16 mmol/L (1.12-1.30); Carboxyhemoglobin (COHb) 0.7 gm% (0.0-3.0); Potassium - ABG Lab 3.64 mmol/L (3.70-5.30); pH, Arterial 7.36 (7.35-7.45)
[2019-04-02 06:57] LABS: Puncture Site RRA
[2019-04-02] MEDS: fentaNYL Citrate/PF 2,000 MCG in Sodium Chloride 0.9% 60 ML IV SCH (07:06)
--- NOTE | 2019-04-02 08:08 | RAD ---
PORTABLE CHEST ONE VIEW: 04/02/2019 5:14 a.m. HISTORY: Pneumonia. Respiratory failure. COMPARISON: 03/31/2019 FINDINGS: Interval placement of an endotracheal tube is seen, with the tip about 2.5 cm above the level of the carmella. The nasogastric tube can be traced into the stomach, with the tip excluded from the film. T he heart size is normal. Bilateral lung infiltrates demonstrate mild improvement. POS: OFF
--- NOTE | 2019-04-02 08:33 | PRG ---
DATE OF SERVICE: 04/02/2019 SUBJECTIVE: The patient is seen and examined at the bedside. She is intubated and on the ventilator. She got intubated last night and moved to the intensive care unit after she experienced respiratory failure. OBJECTIVE: VITAL SIGNS: Blood pressure is 146/66, pulse is 93, respiratory rate is 19, O2 saturation is 100% on the ventilator. HEENT: Her head is atraumatic and normocephalic. Pupils responding to light properly. Sclerae are nonicteric. She is orally intubated. She has NG tube in place. LUNGS: Right base crackles. HEART: S1 and S2 normal. No S3. No S4. ABDOMEN: Soft, nontender, and nondistended. EXTREMITIES: No clubbing, cyanosis, or edema. NEUROLOGICAL: She is able to move her 4 extremities when she is asked. I can communicate with her, she is responding with squeezing my hand as a yes. She does not have any pain. She understands what I am trying to tell her. DIAGNOSTIC DATA: Labs showed ABGs with pH of 7.30, pCO2 of 48.8, pO2 of 376, and base excess -2.9. The rest of labs are pending. Microbiology, the patient had bronchoalveolar lavage yesterday after she got intubated. Her Gram stain shows 0 to 5 epithelial cells in low power field and moderate WBCs were seen. No organisms were seen though. Culture is pending. Echocardiogram was done yesterday, which showed LVEF of 60 to 65, grade 1/3 diastolic dysfunction, mitral annular calcification, mild mitral regurgitation, aortic valve sclerosis, moderate tricuspid regurgitation, and elevated right ventricular systolic pressure estimated at 46 mmHg. IMPRESSION: 1. Sepsis with Escherichia coli. 2. Pyelonephritis. 3. Respiratory failure post oral intubation. 4. History of chronic obstructive pulmonary disease. 5. Encephalopathy secondary to sepsis, resolved. 6. History of frequent urinary tract infections. 7. Current tobacco user. PLAN: The patient had noncardiogenic pulmonary edema associated with pyelonephritis according to the 911 telecommunicator, Dr. Wilkes, but she got worse and she was moved to the intensive care unit for intubation and mechanical ventilation. Her antibiotic regimen was broadened with vancomycin, so she is on meropenem and vancomycin at this point. We will check her BNP since there is some evidence of diastolic dysfunction and part of this respiratory failure is probably caused by diastolic dysfunction, started on methylprednisolone IV every 6 hours and continue DuoNeb and DVT prophylaxis with SCDs and Lovenox. Job ID: [id number]
[2019-04-02 09:19] LABS: Anion Gap 17 mmol/L (10-20); BUN (Urea Nitrogen) 27 mg/dL (9.8-20.1); Calc. Creatinine Clearance 96 mL/min (70-130); Calcium 8.9 mg/dL (7.8-10.44); Carbon Dioxide 21 mmol/L (23-31); Chloride 101 mmol/L (98-107); Estimated GFR-MDRD 71; Glucose 169 mg/dL (80-115); Potassium 3.6 mmol/L (3.5-5.1); Sodium 135 mmol/L (136-145)
[2019-04-02] MEDS: Metoprolol Tartrate 100 MG TAB PER TUBE SCH ×2 (09:20→20:53)
[2019-04-02] MEDS: Vancomycin HCl 1 GM in Premix Bag 1 BAG IVPB SCH (09:20)
[2019-04-02] MEDS: MEROPENEM 1 GM/50 ML 1 GM in Premix Bag 1 BAG IVPB SCH ×3 (09:21→18:08)
[2019-04-02] MEDS: Famotidine/PF 20 mg/2ml Vial SLOW IVP SCH ×2 (09:23→20:52)
[2019-04-02 09:55] LABS: Band 6 % (5-11); Hemoglobin 9.8 g/dL (12.0-16.0); Lymphocytes 5 % (21-51); MDiff Complete? YES; Mean Corpuscular HGB CONC 32.5 g/dL (32.0-36.0); Mean Corpuscular Volume 89.2 fL (78.0-98.0); Mean Platelet Volume 7.9 fL (7.4-10.4); Monocytes 6 % (0-10); Neutrophil 83 % (42-75); Platelet Count 242 thou/uL (130-400); Platelet Morphology Comment Appears Adequate; RBC Distribution Width 13.4 % (11.5-14.5); RBC Morphology Normal; Red Blood Cell (RBC) Count 3.38 mill/uL (4.20-5.40); White Blood Cell (WBC) Count 10.4 thou/uL (4.8-10.8)
[2019-04-02] MEDS: Enoxaparin Sodium 40 MG/0.4 ML SYRINGE SC SCH (09:58)
[2019-04-02] MEDS ORDERED: Furosemide 40 MG/4 ML VIAL SLOW IVP SCH (10:00)
--- NOTE | 2019-04-02 12:33 | PRG ---
DATE OF SERVICE: 04/02/2019 SUBJECTIVE: Brigette Morel will awaken. She moves all her extremities. She nods and she is reasonably comfortable. OBJECTIVE: VITAL SIGNS: Respiratory rates in the teens. Heart rates in the 80s, she is in sinus rhythm. Blood pressure 141/66. LUNGS: Remarkable for faint crackles bilaterally. HEART: Regular rhythm. S1 and S2 are normal. ABDOMEN: Soft. No guarding or tenderness. EXTREMITIES: Without asymmetry or edema. LABORATORY DATA: White count 10.4, hemoglobin 9.8, platelets 242. Sodium 135, potassium 3.6, chloride 101, bicarb 21, BUN 27, and creatinine 0.8. PH 7.36, CO2 of 40, PO2 of 56. Ventilator setup is with SIMV rate of 18, FiO2 of 45, tidal volume 500, pressure support of 10, 7.5 of PEEP. Her rate has been turned down to 14. I met with the daughter and answered all of her questions. Intake and outputs reviewed and is positive 983. Lasix will be started today. Hopefully, we can diurese her some and lead to improvement in gas exchange and pulmonary compliance. Vancomycin will be discontinued. Blood cultures have not changed. Her bronchoalveolar lavage grew no pathogens. We will continue with ventilatory support. I met with the daughter, answered her questions. I would not anticipate that she would be weanable before Friday and probably by Friday. CRITICAL CARE TIME: 35 minutes. Job ID: [id number]
[2019-04-02] MEDS: Furosemide 40 MG/4 ML VIAL SLOW IVP SCH (14:30)
[2019-04-02] MEDS: Sodium Chloride 0.9% 1,000 ML IV SCH (18:28)
[2019-04-02] MEDS: Pregabalin 75 MG CAP PO SCH (20:52)
[2019-04-03] MEDS: methylPREDNISolone Sod Succ 40 MG VIAL IVP SCH ×5 (00:37→23:04)
[2019-04-03] MEDS: Bacteriostatic Water 30 ML VIAL FS PRN ×3 (00:37→23:04)
[2019-04-03] MEDS: MEROPENEM 1 GM/50 ML 1 GM in Premix Bag 1 BAG IVPB SCH ×3 (00:37→17:14)
[2019-04-03 05:05] LABS: Anion Gap 16 mmol/L (10-20); BUN (Urea Nitrogen) 41 mg/dL (9.8-20.1); Calc. Creatinine Clearance 81 mL/min (70-130); Calcium 8.9 mg/dL (7.8-10.44); Carbon Dioxide 25 mmol/L (23-31); Chloride 101 mmol/L (98-107); Estimated GFR-MDRD 58; Glucose 232 mg/dL (80-115); Potassium 3.4 mmol/L (3.5-5.1); Sodium 139 mmol/L (136-145)
[2019-04-03 05:13] LABS: Band 9 % (5-11); Hemoglobin 9.8 g/dL (12.0-16.0); Lymphocytes 9 % (21-51); MDiff Complete? YES; Mean Corpuscular HGB CONC 32.1 g/dL (32.0-36.0); Mean Corpuscular Hemoglobin 28.6 pg (27.0-31.0); Mean Corpuscular Volume 89.1 fL (78.0-98.0); Mean Platelet Volume 7.7 fL (7.4-10.4); Metamyelocyte 1 % (0-0); Monocytes 3 % (0-10); Neutrophil 78 % (42-75); Platelet Count 298 thou/uL (130-400); Platelet Morphology Comment Appears Adequate; RBC Distribution Width 13.5 % (11.5-14.5); RBC Morphology Normal; Red Blood Cell (RBC) Count 3.43 mill/uL (4.20-5.40); White Blood Cell (WBC) Count 10.1 thou/uL (4.8-10.8)
[2019-04-03] MEDS: Morphine 2 MG/ML SYRINGE SLOW IVP SCH (05:30)
[2019-04-03] MEDS: Furosemide 40 MG/4 ML VIAL SLOW IVP SCH ×2 (05:38→13:36)
[2019-04-03] MEDS: Propofol 1,000 MG/100 ML VIAL IV PRN ×3 (05:38→20:23)
[2019-04-03 07:26] LABS: Base Excess (BEa) 1.6 mEq/L (-2.0 to +3.0); CO2 Tension 40.2 mmHg (35.0-45.0); Calcium, Ionized 1.15 mmol/L (1.12-1.30); Hemoglobin (Hb) 10.2 g/dL (12.0-16.0); O2 Tension (PaO2) 88.4 mmHg (> 80.0); Potassium - ABG Lab 3.34 mmol/L (3.70-5.30); pH, Arterial 7.43 (7.35-7.45)
[2019-04-03 07:50] LABS: Puncture Site RRA
[2019-04-03] MEDS: Metoprolol Tartrate 100 MG TAB PER TUBE SCH ×2 (08:15→19:42)
[2019-04-03] MEDS: Enoxaparin Sodium 40 MG/0.4 ML SYRINGE SC SCH (08:15)
[2019-04-03] MEDS: Famotidine/PF 20 mg/2ml Vial SLOW IVP SCH ×2 (08:15→19:41)
--- NOTE | 2019-04-03 08:33 | RAD ---
AP VIEW CHEST: HISTORY: Pneumonia. FINDINGS: Nasogastric tube is in place. Endotracheal tube is also visualized. EKG leads seen over the chest. Mild pulmonary vascular congestion is seen. Previous noted bilateral airspace opacities are less prominent. IMPRESSION: Stable AP view chest except for possible decreased airspace opacities in the lung parenchyma. Transcribed Date/Time: 04/03/2019 8:43 AM
[2019-04-03 09:31] LABS: Phosphorus 3.4 mg/dL (2.3-4.7)
--- NOTE | 2019-04-03 10:13 | PRG ---
DATE OF SERVICE: 04/03/2019 SUBJECTIVE: The patient is seen and examined at the bedside. She is in CCU, C5 bed. She is intubated and sedation is off, so she is able to communicate with me by squeezing my hand. OBJECTIVE: VITAL SIGNS: Blood pressure is 126/59, pulse is 73, respirations 18, and O2 saturation is 98%. She is on mechanical ventilation. HEENT: Her pupils are responding to light properly. Sclerae are nonicteric. LUNGS: Improved significantly. Few rales bilaterally. No wheezing. HEART: S1 and S2 normal. No S3. No S4. ABDOMEN: Soft and nontender. Bowel sounds are present. No organomegaly. EXTREMITIES: No clubbing, cyanosis, or edema. NEUROLOGIC: She follows my commands. She moves her all 4 extremities. There is no any motor deficits. LABORATORY DATA: Labs showed white count of 10.1, hemoglobin 9.8, hematocrit 30.6, and platelet count is 298,000. ABGs showed pH of 7.43, pCO2 of 40.2, and pO2 of 88.4. Sodium of 139, potassium 3.4, chloride 101, CO2 of 25, BUN 41, creatinine 0.96, glucose 232, and calcium 8.9. BNP yesterday was done and it was 173.9. MICROBIOLOGY: Bronchioloalveolar lavage is showing presumptive Rosio albicans, 300 colony forming units per mL and no growth of any bacterial pathogen. IMAGING: Chest x-ray done this morning showed significant improvement on bilateral infiltrates comparing to the one, which was taken yesterday. IMPRESSION: 1. Sepsis with Escherichia coli. 2. Pyelonephritis. 3. Respiratory failure, status post intubation. I think there is both infectious component and congestive heart failure component. We are waiting for the echocardiogram to be done. She was started on Lasix and she seems to be doing better. 4. History of chronic obstructive pulmonary disease. 5. Encephalopathy secondary to sepsis, resolved. 6. History of frequent urinary tract infections in the past. 7. Current tobacco user. PLAN: Plan is to continue her meropenem. Vancomycin was stopped by Dr. Wilkes. We will continue mechanical ventilation. We will continue her diuresis. We will check her phosphorus level. We will continue her feeding. She is on goal to 45 mL per hour. We will continue DVT prophylaxis with SCDs and Lovenox and start her on Diflucan for . Job ID: [id number]
--- NOTE | 2019-04-03 10:38 | PRG ---
DATE OF SERVICE: 04/03/2019 SUBJECTIVE: This morning intubated in the vent, sedated. She opens her eyes. X-ray shows improvement in bilateral pulmonary infiltrates. OBJECTIVE: VITAL SIGNS: Blood pressure is 112/60, sats are 96% to 97%, respirations 21, pulse 80. She is afebrile. CHEST: Crackles without any wheezing. CARDIAC: Normal S1, S2. No gallops. ABDOMEN: No masses. LABORATORY DATA: White count 10,000, H and H 10 and 30, platelet count is normal. PO2 is 88, pCO2 is 40, pH 7.43 on a rate of 18, 45% FiO2, PEEP 7.5. Lytes are normal. Cultures so far Rosio. IMPRESSION: 1. Respiratory failure, acute respiratory distress syndrome, improved. 2. Sepsis syndrome. 3. Renal failure, improved. 4. Pyelonephritis, better. PLAN: Vent is being adjusted. Slow weaning. Continue broad-spectrum antibiotics. Continue nutrition, PT. One-half hour of critical time. Job ID: [id number]
[2019-04-03] MEDS: Sodium Chloride 0.9% 1,000 ML IV SCH (14:28)
[2019-04-03] MEDS: fentaNYL Citrate/PF 2,000 MCG in Sodium Chloride 0.9% 60 ML IV SCH (16:42)
[2019-04-03] MEDS: Pregabalin 75 MG CAP PO SCH (19:42)
[2019-04-04] MEDS: MEROPENEM 1 GM/50 ML 1 GM in Premix Bag 1 BAG IVPB SCH ×3 (00:10→16:18)
[2019-04-04 04:00] LABS: Band 9 % (5-11); Hemoglobin 9.5 g/dL (12.0-16.0); Lymphocytes 10 % (21-51); MDiff Complete? YES; Mean Corpuscular HGB CONC 32.1 g/dL (32.0-36.0); Mean Corpuscular Hemoglobin 28.6 pg (27.0-31.0); Mean Corpuscular Volume 89.4 fL (78.0-98.0); Mean Platelet Volume 7.5 fL (7.4-10.4); Metamyelocyte 1 % (0-0); Monocytes 5 % (0-10); Neutrophil 74 % (42-75); Platelet Count 306 thou/uL (130-400); Platelet Morphology Comment Appears Adequate; RBC Distribution Width 13.5 % (11.5-14.5); Red Blood Cell (RBC) Count 3.31 mill/uL (4.20-5.40); White Blood Cell (WBC) Count 9.6 thou/uL (4.8-10.8)
[2019-04-04 04:03] LABS: Anion Gap 15 mmol/L (10-20); BUN (Urea Nitrogen) 48 mg/dL (9.8-20.1); Calc. Creatinine Clearance 86 mL/min (70-130); Calcium 8.7 mg/dL (7.8-10.44); Carbon Dioxide 29 mmol/L (23-31); Chloride 105 mmol/L (98-107); Estimated GFR-MDRD 62; Glucose 331 mg/dL (80-115); Potassium 3.7 mmol/L (3.5-5.1); Sodium 145 mmol/L (136-145)
[2019-04-04] MEDS ORDERED: Dextrose 50% Abboject 50 ML SYRINGE SLOW IVP PRN ×2 (04:24→07:59)
[2019-04-04] MEDS ORDERED: HumaLOG 300 UNITS/3 ML VIAL SC PRN ×2 (04:24)
[2019-04-04] MEDS ORDERED: Dextrose 5% in Water 1,000 ML IV PRN ×2 (04:24→07:59)
[2019-04-04] MEDS: methylPREDNISolone Sod Succ 40 MG VIAL IVP SCH ×2 (05:10→21:13)
[2019-04-04] MEDS: Furosemide 40 MG/4 ML VIAL SLOW IVP SCH (05:10)
[2019-04-04] MEDS: Bacteriostatic Water 30 ML VIAL FS PRN (05:10)
[2019-04-04] MEDS: Propofol 1,000 MG/100 ML VIAL IV PRN ×2 (05:46→16:18)
[2019-04-04] MEDS: Famotidine/PF 20 mg/2ml Vial SLOW IVP SCH ×2 (08:21→20:58)
[2019-04-04] MEDS: Enoxaparin Sodium 40 MG/0.4 ML SYRINGE SC SCH (08:21)
[2019-04-04] MEDS: Metoprolol Tartrate 100 MG TAB PER TUBE SCH ×2 (08:34→20:59)
--- NOTE | 2019-04-04 08:46 | PRG ---
DATE OF SERVICE: 04/04/2019 SUBJECTIVE: The patient is seen and examined at the bedside. She is sedated and intubated on the ventilator. She was started on insulin sliding scale last night since her glycemia is getting worse, but there was no any unexpected event overnight. OBJECTIVE: VITAL SIGNS: Blood pressure is 139/61, pulse is 69, respiratory rate is 15, and O2 saturation is 96%. HEENT: Her pupils are sluggish to respond to light. Sclerae are nonicteric. Conjunctivae are pinkish. She is orally intubated. LUNGS: Coarse sounds over both lungs. No wheezing. No rales. HEART: S1 and S2 normal. No S3. No S4. ABDOMEN: Soft, nontender, and nondistended. EXTREMITIES: No clubbing, cyanosis, or edema. NEUROLOGIC: Postponed since she is sedated. DIAGNOSTIC DATA: Labs showed a white count of 9.6, hemoglobin 9.5, hematocrit 29.6, and platelet count is 306. Normal electrolytes. BUN is 48, creatinine 0.91, glycemia is ranging from 169 to 331, and calcium is 8.7. Microbiology, no new findings. Chest x-ray showed increased interstitial findings. IMPRESSION: 1. Sepsis with Escherichia coli. 2. Pyelonephritis. 3. Respiratory failure, status post intubation with some probably congestive heart failure component. 4. History of chronic obstructive pulmonary disease. 5. Encephalopathy secondary to sepsis, resolved. 6. History of frequent urinary tract infections in the past. 7. Current tobacco user. 8. Hyperglycemia secondary to steroids use. PLAN: I am going to increase her sliding scale to moderate from mild, she was started on last night. Accu-Cheks q.4 hours. We will continue her meropenem IV piggyback. We will continue. We will continue diuretics and we will continue IV steroids. Job ID: [id number]
[2019-04-04] MEDS: HumaLOG 300 UNITS/3 ML VIAL SC PRN ×3 (08:49→20:55)
--- NOTE | 2019-04-04 09:18 | RAD ---
AP VIEW CHEST: HISTORY: Ventilator dependent patient FINDINGS: AP view chest obtained on 04/04/2019. Comparison is made to a previous exam from 04/03/2019. AP view chest demonstrates nasogastric and endotracheal tubes to again be in position. Cardiomegaly i s seen. Pulmonary vascular congestion noted. No significant interval changes seen. IMPRESSION: Cardiomegaly and pulmonary vascular congestion. Transcribed Date/Time: 04/04/2019 9:48 AM
[2019-04-04 09:37] LABS: Actual Bicarbonate (HCO3a) 32.2 mEq/L (22-28); Base Excess (BEa) 6.2 mEq/L (-2.0 to +3.0); CO2 Tension 53.6 mmHg (35.0-45.0); Calcium, Ionized 1.14 mmol/L (1.12-1.30); Carboxyhemoglobin (COHb) 0.5 gm% (0.0-3.0); Hemoglobin (Hb) 10.3 g/dL (12.0-16.0); Potassium - ABG Lab 3.51 mmol/L (3.70-5.30)
[2019-04-04 09:39] LABS: Puncture Site RRA
--- NOTE | 2019-04-04 10:33 | PRG ---
DATE OF SERVICE: 04/04/2019 SUBJECTIVE: This morning, intubated in the vent, sedated on Diprivan and fentanyl. Opens her eyes. OBJECTIVE: VITAL SIGNS: Blood pressure 152/78, pulse 74, temperature is 98, respirations 18, and saturations 98%. I's and O's 2887 in and 3193 out. CHEST: Decreased breath sounds. No wheezing. CARDIAC: Normal S1 and S2. ABDOMEN: Soft. NEUROLOGIC: She is awake, opens her eyes. LABORATORY DATA: A pO2 is 101, pCO2 is 50, pH 7.50, on 45%, PEEP of 10. X-ray shows much improvement, less infiltrates, and minimal haziness. White count 9000, H and H 9 and 29, and platelet count normal. IMPRESSION AND PLAN: Urosepsis, yeast in the bronchial lavage colonization, sepsis syndrome, and respiratory failure. We will minimize sedation. Hopefully, try and wean in the next 24 to 48 hours. Underlying chronic lung disease. Continue nutrition and PT. This is one-half hour of critical care time. Job ID: [id number]
[2019-04-04] MEDS: Sodium Chloride 0.9% 1,000 ML IV SCH ×2 (11:15→11:47)
[2019-04-04] MEDS: fentaNYL Citrate/PF 2,000 MCG in Sodium Chloride 0.9% 60 ML IV SCH (18:32)
[2019-04-04] MEDS: Pregabalin 75 MG CAP PO SCH (20:59)
[2019-04-05] MEDS: MEROPENEM 1 GM/50 ML 1 GM in Premix Bag 1 BAG IVPB SCH ×3 (01:12→17:00)
[2019-04-05 06:27] LABS: Mean Corpuscular Hemoglobin 29.8 pg (27.0-31.0); Mean Corpuscular Volume 90.3 fL (78.0-98.0); Mean Platelet Volume 7.4 fL (7.4-10.4); Platelet Count 266 thou/uL (130-400); RBC Distribution Width 13.5 % (11.5-14.5); Red Blood Cell (RBC) Count 3.01 mill/uL (4.20-5.40); White Blood Cell (WBC) Count 9.8 thou/uL (4.8-10.8)
[2019-04-05 06:43] LABS: Band 1 % (5-11); Hypochromia SLIGHT = 6-15 cells (100X) (0-5/hpf); Lymphocytes 9 % (21-51); MDiff Complete? YES; Monocytes 1 % (0-10); Neutrophil 89 % (42-75); Platelet Morphology Comment Appears Adequate
[2019-04-05 06:54] LABS: Anion Gap 12 mmol/L (10-20); BUN (Urea Nitrogen) 37 mg/dL (9.8-20.1); Calc. Creatinine Clearance 113 mL/min (70-130); Calcium 8.4 mg/dL (7.8-10.44); Carbon Dioxide 31 mmol/L (23-31); Chloride 108 mmol/L (98-107); Estimated GFR-MDRD 85; Glucose 183 mg/dL (80-115); Sodium 147 mmol/L (136-145)
[2019-04-05 07:12] LABS: CO2 Tension 54.5 mmHg (35.0-45.0); pH, Arterial 7.41 (7.35-7.45)
[2019-04-05 07:13] LABS: Actual Bicarbonate (HCO3a) 33.5 mEq/L (22-28); Base Excess (BEa) 7.5 mEq/L (-2.0 to +3.0); Calcium, Ionized 1.17 mmol/L (1.12-1.30); Carboxyhemoglobin (COHb) 1.4 gm% (0.0-3.0); Hemoglobin (Hb) 10.2 g/dL (12.0-16.0); O2 Tension (PaO2) 56.8 mmHg (> 80.0); Potassium - ABG Lab 3.89 mmol/L (3.70-5.30)
[2019-04-05 07:14] LABS: ALV-art Gradient 195.925 (0-20); Puncture Site LR
--- NOTE | 2019-04-05 07:52 | RAD ---
Chest AP view INDICATION: Intubation COMPARISON: April 04, 2019 FINDINGS: Lungs:Diffuse airspace opacities are likely stable when accounting for the hypoventilation demonstrat ed on the current exam. Cardiac silhouette pulmonary vasculature:Cardiomegaly and pulmonary vascular congestion persists. Pleural spaces:Small bilateral pleural effusions persist. No pneumothorax. Upper abdomen:No abnormality seen. Osseous structures: No acute osseous abnormality. ET tube gastric catheter are unchanged. IMPRESSION: Hypoventilation. Otherwise stable exam.
[2019-04-05] MEDS ORDERED: Furosemide 40 MG/4 ML VIAL SLOW IVP SCH (09:00)
[2019-04-05] MEDS: Enoxaparin Sodium 40 MG/0.4 ML SYRINGE SC SCH (09:44)
[2019-04-05] MEDS: Famotidine/PF 20 mg/2ml Vial SLOW IVP SCH ×2 (09:45→21:12)
[2019-04-05] MEDS: Propofol 1,000 MG/100 ML VIAL IV PRN ×2 (09:45→15:51)
[2019-04-05] MEDS: Metoprolol Tartrate 100 MG TAB PER TUBE SCH ×2 (09:45→21:13)
--- NOTE | 2019-04-05 10:06 | PRG ---
DATE OF SERVICE: 04/05/2019 SUBJECTIVE: The patient is seen and examined at the bedside. She is sedated. Apparently when the sedation level was lowered, she became agitated, so now she is sedated more, but plan is to extubate her this morning. OBJECTIVE: VITAL SIGNS: Blood pressure is 153/62, pulse is 80, respiratory rate is 17, and O2 saturation is 93% on room air. HEENT: Sclerae are nonicteric. LUNGS: Few rales at both bases. HEART: S1 and S2 normal. No S3. No S4. ABDOMEN: Soft, nontender, and nondistended. EXTREMITIES: No clubbing, cyanosis, or edema. NEUROLOGIC: Postponed since she is on the sedation. LABORATORY DATA: Chest x-ray obtained this morning, personally reviewed by me showed hypoventilation and otherwise stable exam. IMPRESSION: 1. Sepsis with Escherichia coli. 2. Pyelonephritis. 3. Respiratory failure with some component of congestive heart failure I believe. 4. History of chronic obstructive pulmonary disease. 5. Encephalopathy secondary to sepsis, resolved. 6. History of frequent urinary tract infection in the past. 7. Current tobacco user. 8. Hyperglycemia secondary to steroid use. PLAN: Her glycemia is improved. She is going to continue on her antibiotic, which is meropenem. She will continue on steroids IV push twice a day. She will continue on DuoNeb and Pulmonary is planning to extubate her today and change her Accu-Cheks to before meals at bedtime after she is extubated and continue sliding scale. Job ID: [id number]
[2019-04-05] MEDS: methylPREDNISolone Sod Succ 40 MG VIAL IVP SCH ×2 (10:41→21:13)
[2019-04-05] MEDS: Furosemide 40 MG/4 ML VIAL SLOW IVP SCH ×2 (11:00→14:21)
[2019-04-05] MEDS: HumaLOG 300 UNITS/3 ML VIAL SC PRN ×3 (12:25→21:17)
--- NOTE | 2019-04-05 14:59 | PRG ---
DATE OF SERVICE: 04/05/2019 SUBJECTIVE: Ms. Morel is awake on fentanyl and propofol. OBJECTIVE: VITAL SIGNS: Blood pressure 153/87, heart rate is in 70s, and respiratory rates in the teens. HEAD AND NECK: Unremarkable. LUNGS: Remarkable for equal breath sounds. HEART: Regular rhythm. S1 and S2 normal. ABDOMEN: Soft and nontender. EXTREMITIES: Without asymmetry or edema. NEUROLOGIC: Nonfocal. LABORATORY DATA: White count 9.8, hemoglobin 9.0, and platelets 266,000. Sodium 147, potassium 4, chloride 108, bicarb 31, BUN 37, and creatinine 0.69. A pH of 7.41, CO2 of 54, and pO2 of 56. Chest x-ray reviewed by me still shows evidence of pulmonary edema. IMPRESSION AND PLAN: Pyelonephritis with clinical sepsis and adult respiratory distress syndrome. We will begin to more aggressively diurese her. She is not weanable at this time. I met with the daughter and answered all of her questions. CRITICAL CARE TIME: 30 minutes. Job ID: [id number]
[2019-04-05] MEDS: fentaNYL Citrate/PF 2,000 MCG in Sodium Chloride 0.9% 60 ML IV SCH (15:44)
[2019-04-05] MEDS: Sodium Chloride 0.9% 1,000 ML IV SCH (16:28)
[2019-04-05] MEDS: Pregabalin 75 MG CAP PO SCH (21:13)
[2019-04-06] MEDS: MEROPENEM 1 GM/50 ML 1 GM in Premix Bag 1 BAG IVPB SCH ×2 (01:50→07:45)
[2019-04-06] MEDS: Furosemide 40 MG/4 ML VIAL SLOW IVP SCH ×2 (05:48→13:22)
[2019-04-06 06:47] LABS: BUN (Urea Nitrogen) 40 mg/dL (9.8-20.1); Calc. Creatinine Clearance 102 mL/min (70-130); Calcium 8.8 mg/dL (7.8-10.44); Estimated GFR-MDRD 79; Glucose 245 mg/dL (80-115)
[2019-04-06 06:58] LABS: Anion Gap 16 mmol/L (10-20); Carbon Dioxide 33 mmol/L (23-31); Chloride 101 mmol/L (98-107); Potassium 4.1 mmol/L (3.5-5.1); Sodium 146 mmol/L (136-145)
[2019-04-06 07:07] LABS: Actual Bicarbonate (HCO3a) 40.1 mEq/L (22-28); CO2 Tension 59.3 mmHg (35.0-45.0); Carboxyhemoglobin (COHb) 0.8 gm% (0.0-3.0); Hemoglobin (Hb) 10.7 g/dL (12.0-16.0); O2 Tension (PaO2) 79.9 mmHg (> 80.0); pH, Arterial 7.45 (7.35-7.45)
[2019-04-06 07:08] LABS: ALV-art Gradient 166.825 (0-20); Calcium, Ionized 1.11 mmol/L (1.12-1.30); Puncture Site LRA
[2019-04-06 07:12] LABS: Band 13 % (5-11); Eosinophils 2 % (0-10); Hemoglobin 9.5 g/dL (12.0-16.0); Lymphocytes 11 % (21-51); MDiff Complete? YES; Mean Corpuscular HGB CONC 31.1 g/dL (32.0-36.0); Mean Corpuscular Hemoglobin 28.8 pg (27.0-31.0); Mean Corpuscular Volume 92.7 fL (78.0-98.0); Mean Platelet Volume 7.5 fL (7.4-10.4); Metamyelocyte 2 % (0-0); Neutrophil 72 % (42-75); Platelet Count 255 thou/uL (130-400); Platelet Morphology Comment Appears Adequate; Polychromasia SLIGHT = 2-3 cells (100X) (0-2/hpf); RBC Distribution Width 13.4 % (11.5-14.5); White Blood Cell (WBC) Count 10.6 thou/uL (4.8-10.8)
[2019-04-06] MEDS: Famotidine/PF 20 mg/2ml Vial SLOW IVP SCH ×2 (07:45→20:02)
[2019-04-06] MEDS: Metoprolol Tartrate 100 MG TAB PER TUBE SCH ×2 (07:45→20:02)
[2019-04-06] MEDS: Enoxaparin Sodium 40 MG/0.4 ML SYRINGE SC SCH (07:45)
[2019-04-06] MEDS: methylPREDNISolone Sod Succ 40 MG VIAL IVP SCH (07:46)
[2019-04-06] MEDS: HumaLOG 300 UNITS/3 ML VIAL SC PRN ×4 (07:46→23:19)
--- NOTE | 2019-04-06 08:48 | RAD ---
EXAM: CHEST ONE VIEW: History: Follow up pneumonia. Comparison: 04-05-19 FINDINGS: NG tube and endotracheal tubes are in place. Monitor leads overlie the chest. There is bilateral inte rstitial and alveolar opacity changes throughout both lungs showing improvement from prior study. No new process. IMPRESSION: Improving bilateral interstitial and alveolar opacities throughout both lungs. Continued short term f ollow up for clearing or stability. POS: T[facility]
--- NOTE | 2019-04-06 09:59 | PRG ---
DATE OF SERVICE: 04/06/2019 SUBJECTIVE: The patient is seen and examined at the bedside. Still intubated on a ventilator. 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 There were no any unexpected events overnight. OBJECTIVE: VITAL SIGNS: Blood pressure is 114/47, pulse is 66, respiratory rate is 10, O2 saturation is 99%, and temperature is 98.9, that is the maximal temperature. HEENT: Pupils somewhat sluggish to response to light. Sclerae are nonicteric. LUNGS: Breath sounds diminished at both bases and scattered rales on the right and the left in the mid lung zone. HEART: S1 and S2 normal. No S3. No S4. ABDOMEN: Soft and nondistended. Bowel sounds sluggish. EXTREMITIES: No clubbing, cyanosis, or edema. NEUROLOGICAL: Postponed since she is sedated. LABORATORY DATA: Labs showed white count of 10.6, hemoglobin 9.5, hematocrit 30.6, and platelet count is 255,000. ABGs showed pH of 7.45, CO2 of 59.3, and PO2 is 79.9. A-a gradient 166. Sodium of 146, potassium 4.1, chloride 101, CO2 of 33, BUN 40, creatinine 0.74, glycemia is ranging from 152 to 302, and calcium 8.2. IMAGING STUDIES: Chest x-ray done this morning showed bilateral increased interstitial markings throughout similar picture to the one we got yesterday, maybe slightly better. IMPRESSION: 1. Sepsis with Escherichia coli. 2. Pyelonephritis. 3. Respiratory failure with some component of congestive heart failure. 4. Acute respiratory distress syndrome. 5. History of chronic obstructive pulmonary disease. 6. Encephalopathy. 7. History of frequent urinary tract infection in the past. 8. Current tobacco user. 9. Hyperglycemia, secondary to steroid use. She was started on Lasix yesterday. Her urine output over the last 24 hours is 5435 mL, so very significant output. New mechanical ventilation. We will continue IV steroids. We will continue DuoNeb. We will continue sliding scale and coverage with short-acting insulin every 6 hours, and we will continue her tube feeding and we will continue her DVT prophylaxis with SCDs and Lovenox. Job ID: [id number]
[2019-04-06] MEDS: Insulin Glargine 10 UNITS in Pre-Filled Syringe 1 EACH SC SCH (10:36)
[2019-04-06] MEDS: Propofol 1,000 MG/100 ML VIAL IV PRN ×3 (10:37→23:30)
[2019-04-06] MEDS: fentaNYL Citrate/PF 2,000 MCG in Sodium Chloride 0.9% 60 ML IV SCH (11:01)
[2019-04-06] MEDS: Bisacodyl 10 MG SUPP PR PRN (11:59)
[2019-04-06] MEDS ORDERED: acetaZOLAMIDE Sodium 500 mg Vial IVP SCH (13:15)
[2019-04-06] MEDS ORDERED: Bacteriostatic Water 30 ML VIAL FS PRN (13:19)
[2019-04-06] MEDS ORDERED: Sterile Water 10 ML VIAL FS SCH (13:30)
--- NOTE | 2019-04-06 13:36 | PRG ---
DATE OF SERVICE: 04/06/2019 SUBJECTIVE: Brigette Morel did well overnight. OBJECTIVE: VITAL SIGNS: Heart rate 70, blood pressure 131/67, respiratory rate in the teens, oximetry is 96%. Intake and outputs negative 3526. LUNGS: Clear. HEART: Regular rhythm, S1 and S2 are normal. ABDOMEN: Soft and nontender. EXTREMITIES: Without edema. LABORATORY DATA: White count 10.6, hemoglobin 9.5, platelets 255. Sodium 146, potassium 4.1, chloride 101, bicarb 33, BUN 40, creatinine 0.74, BUN yesterday was 37. Blood gas 7.45, CO2 69, PO2 of 79. IMPRESSION: 1. Escherichia coli sepsis secondary to pyelonephritis. 2. Adult respiratory distress syndrome with volume overload. 3. Developing metabolic alkalosis with diuresis, will receive one dose of Diamox today. 4. Respiratory failure, still on mechanical ventilation. I am hoping we can do a spontaneous breathing trial tomorrow if she continues to diurese well. CRITICAL CARE TIME: 30 minutes. Job ID: [id number]
[2019-04-06] MEDS: Sodium Chloride 0.9% 1,000 ML IV SCH (16:01)
[2019-04-06] MEDS: Cefdinir 300 MG CAP PER TUBE SCH (20:02)
[2019-04-06] MEDS: Pregabalin 75 MG CAP PO SCH (20:02)
[2019-04-07 03:24] LABS: #Eosinphils 0.4 thou/uL (0.0-0.7); #Lymphocytes 2.3 thou/uL (1.20-3.40); #Monocytes 0.4 thou/uL (0.11-0.59); #Neutrophils 6.9 thou/uL (1.40-6.50); %Eosinophils 4.3 % (0.0-10.0); %Lymphocytes 22.9 % (21.0-51.0); %Monocytes 3.6 % (0.0-10.0); %Neutrophils 69.2 % (42.0-75.0); Hemoglobin 9.5 g/dL (12.0-16.0); Mean Corpuscular Volume 93.3 fL (78.0-98.0); Mean Platelet Volume 7.5 fL (7.4-10.4); Platelet Count 220 thou/uL (130-400); RBC Distribution Width 13.4 % (11.5-14.5); Red Blood Cell (RBC) Count 3.29 mill/uL (4.20-5.40)
[2019-04-07 03:49] LABS: BUN (Urea Nitrogen) 50 mg/dL (9.8-20.1); Calc. Creatinine Clearance 100 mL/min (70-130); Calcium 8.9 mg/dL (7.8-10.44); Estimated GFR-MDRD 76; Glucose 193 mg/dL (80-115)
[2019-04-07 03:57] LABS: Anion Gap 17 mmol/L (10-20); Carbon Dioxide 34 mmol/L (23-31); Chloride 101 mmol/L (98-107); Potassium 3.5 mmol/L (3.5-5.1); Sodium 148 mmol/L (136-145)
[2019-04-07] MEDS: HumaLOG 300 UNITS/3 ML VIAL SC PRN ×3 (03:57→16:31)
[2019-04-07] MEDS: Propofol 1,000 MG/100 ML VIAL IV PRN (04:29)
[2019-04-07] MEDS: Furosemide 40 MG/4 ML VIAL SLOW IVP SCH ×2 (05:06→14:21)
--- NOTE | 2019-04-07 06:27 | RAD ---
XR Chest 1 View Portable HISTORY: Respiratory distress COMPARISON: Prior day's exam. FINDINGS: Heart size is borderline. Endotracheal and NG tubes are in satisfactory position. The inter stitial and alveolar lung opacities are slightly improved as compared the prior examination although I believe a large portion of this change is just technique related. IMPRESSION: Suggestion of some minimal improvement to the parenchymal lung changes although I feel th at most of the apparent change is probably just related to differences in technique.
[2019-04-07 06:40] LABS: Actual Bicarbonate (HCO3a) 35.6 mEq/L (22-28); Base Excess (BEa) 10.2 mEq/L (-2.0 to +3.0); CO2 Tension 51.5 mmHg (35.0-45.0); Calcium, Ionized 1.13 mmol/L (1.12-1.30); Carboxyhemoglobin (COHb) 0.5 gm% (0.0-3.0); Hemoglobin (Hb) 10.9 g/dL (12.0-16.0); O2 Tension (PaO2) 65.1 mmHg (> 80.0); Potassium - ABG Lab 3.88 mmol/L (3.70-5.30); pH, Arterial 7.46 (7.35-7.45)
[2019-04-07 06:41] LABS: ALV-art Gradient 84.425 (0-20); Puncture Site RRA
[2019-04-07] MEDS: Cefdinir 300 MG CAP PER TUBE SCH ×2 (08:01→20:42)
[2019-04-07] MEDS: Enoxaparin Sodium 40 MG/0.4 ML SYRINGE SC SCH (08:01)
[2019-04-07] MEDS: Bacteriostatic Water 30 ML VIAL FS PRN (08:02)
[2019-04-07] MEDS: methylPREDNISolone Sod Succ 40 MG VIAL IVP SCH (08:02)
[2019-04-07] MEDS: Famotidine/PF 20 mg/2ml Vial SLOW IVP SCH ×2 (08:09→20:42)
[2019-04-07] MEDS: Metoprolol Tartrate 100 MG TAB PER TUBE SCH ×3 (08:09→20:42)
[2019-04-07] MEDS ORDERED: methylPREDNISolone Sod Succ 40 MG VIAL IVP SCH (09:00)
[2019-04-07] MEDS: Bisacodyl 10 MG SUPP PR PRN (09:37)
[2019-04-07] MEDS: Insulin Glargine 10 UNITS in Pre-Filled Syringe 1 EACH SC SCH (10:26)
[2019-04-07] MEDS ORDERED: Polyethylene Glycol 3350 17 GM Packet PO PRN (11:05)
--- NOTE | 2019-04-07 11:07 | PDOC.PN ---
- Subjective Encounter Start Date: 04/07/19 Encounter Start Time: 11:05 Ms. Morel was seen today in follow-up of E. Coli sepsis with ARDS. She has been extubated. She appears a bit disoriented. She does not have any complaints. - Objective Resuscitation Status - Order Detail: 03/29/19 04:02 Resuscitation Status Routine Resuscitation Status: FULL: Full Resuscitation MAR Reviewed: Yes Vital Signs & Weight: Vital Signs (12 hours) Temp Pulse Resp BP Pulse Ox 04/07/19 10:49 98.5 F 04/07/19 10:19 86 23 H 04/07/19 10:10 92 L 04/07/19 09:30 18 04/07/19 07:30 13 97 04/07/19 07:22 13 04/07/19 07:14 73 105/43 L 04/07/19 07:00 98.3 F 04/07/19 06:00 10 L 04/07/19 04:00 10 L 04/07/19 03:00 98.7 F 04/07/19 02:22 62 113/50 L 04/07/19 02:00 10 L 04/07/19 00:00 10 L Weight Admit Weight 183 lb Weight 191 lb 5.78 oz Most Recent Monitor Data Heart Rate from ECG 89 NIBP 130/58 NIBP BP-Mean 82 Respiration from ECG 19 SpO2 90 I&O: 04/06/19 04/07/19 04/08/19 06:59 06:59 06:59 Intake Total 1908.1 1658.5 289.2 Output Total 5435 2421 540 Balance -3526.9 -762.5 -250.8 Result Diagrams: 04/07/19 03:10 04/07/19 03:10 Additional Labs: Accuchecks 04/07/19 04/06/19 04/06/19 07:29 23:20 19:52 POC Glucose 139 H 166 H 122 H 04/06/19 04/06/19 15:56 12:01 POC Glucose 197 H 262 H Phys Exam - Physical Examination HEENT: PERRLA Respiratory: no wheezing, no rales, no rhonchi, clear to auscultation bilateral Cardiovascular: RRR, no significant murmur, no rub Gastrointestinal: soft, non-tender, no distention, positive bowel sounds Musculoskeletal: pulses present, edema present trace pedal edema bilaterally Neurological: non-focal Dx/Plan (1) ARDS (adult respiratory distress syndrome) Code(s): J80 - ACUTE RESPIRATORY DISTRESS SYNDROME Status: Acute (2) Sepsis Code(s): A41.9 - SEPSIS, UNSPECIFIED ORGANISM Status: Acute Comment: continue IV meropenem. Vancomycin restarted. (3) Hypertension Code(s): I10 - ESSENTIAL (PRIMARY) HYPERTENSION Status: Chronic Comment: controlled (4) Acute pyelonephritis Code(s): N10 - ACUTE PYELONEPHRITIS Status: Acute Comment: continue IV meropenem (5) Hyperglycemia Code(s): R73.9 - HYPERGLYCEMIA, UNSPECIFIED Status: Acute - Plan * Pyelonephritis with E. Coli sepsis- The E. Coli strain is sensitive to Cephalosporins- she has been transitioned to Omnicef * ARDS- due to E. coli sepsis- this has improved- she has been extubated * HTN- blood pressure is stable . * Hyperglycemia- blood glucose is elevated- ? diagnosis of DM- will check HGA1C , continue low dose Lantus and SSI
[2019-04-07] MEDS: Morphine 2 MG/ML SYRINGE SLOW IVP PRN ×3 (12:21→20:46)
[2019-04-07] MEDS: Sodium Chloride 0.9% 1,000 ML IV SCH (16:15)
--- NOTE | 2019-04-07 16:24 | PRG ---
DATE OF SERVICE: 04/07/2019 SUBJECTIVE: Brigette Morel is awake and alert this morning. Her sedation was turned off. Ventilator was turned to an IMV of 4, pressure support of 5, PEEP of 5. She was observed with the spontaneous breathing trial for several hours and was stable. She passed a leak test. Her minute volume was 8 L a minute. PHYSICAL EXAMINATION: HEAD AND NECK: Unremarkable. LUNGS: Clear. HEART: Regular rhythm. ABDOMEN: Soft. EXTREMITIES: Without edema. LABORATORY DATA: White count 10, hemoglobin 9.5, platelets 220. Sodium 148, potassium 3.5, chloride 101, bicarb 34, BUN 50, creatinine 0.76. IMPRESSION: 1. Status post sepsis secondary to pyelonephritis. 2. Escherichia coli that was ampicillin resistant (she is being treated with ampicillin as an outpatient for UTI). 3. Adult respiratory distress syndrome. Today's chest x-ray has dramatically improved. 4. Acute respiratory failure related to adult respiratory distress syndrome. 5. Reported chronic obstructive pulmonary disease without an exacerbation this admission. 6. Metabolic alkalosis that has improved with Diamox. 7. Prerenal azotemia that is iatrogenic and intentional. BUN today is 50, creatinine is 0.76. 8. Diabetes. She remained in the critical care unit after extubation. She is doing well, is weak and will possibly need skilled facility rehabilitation after this. Critical care time is 35 minutes Job ID: [id number] MTDD
[2019-04-07] MEDS: Pregabalin 75 MG CAP PO SCH (20:43)
[2019-04-08] MEDS: Furosemide 40 MG/4 ML VIAL SLOW IVP SCH ×2 (04:22→13:59)
[2019-04-08 04:54] LABS: Band 6 % (5-11); Eosinophils 2 % (0-10); Hemoglobin 10.7 g/dL (12.0-16.0); Lymphocytes 26 % (21-51); MDiff Complete? YES; Mean Corpuscular HGB CONC 31.7 g/dL (32.0-36.0); Mean Corpuscular Hemoglobin 28.9 pg (27.0-31.0); Mean Corpuscular Volume 91.3 fL (78.0-98.0); Mean Platelet Volume 7.9 fL (7.4-10.4); Monocytes 4 % (0-10); Neutrophil 61 % (42-75); Platelet Count 229 thou/uL (130-400); Platelet Morphology Comment Appears Adequate; RBC Distribution Width 13.4 % (11.5-14.5); Reactive Lymphocytes 1 % (0-10); White Blood Cell (WBC) Count 9.9 thou/uL (4.8-10.8)
[2019-04-08 05:04] LABS: Anion Gap 12 mmol/L (10-20); BUN (Urea Nitrogen) 39 mg/dL (9.8-20.1); Calc. Creatinine Clearance 97 mL/min (70-130); Calcium 9.3 mg/dL (7.8-10.44); Carbon Dioxide 35 mmol/L (23-31); Chloride 96 mmol/L (98-107); Estimated GFR-MDRD 74; Glucose 129 mg/dL (80-115); Potassium 3.9 mmol/L (3.5-5.1); Sodium 139 mmol/L (136-145)
--- NOTE | 2019-04-08 07:57 | RAD ---
Portable chest: HISTORY: Pneumonia follow-up COMPARISON: 04/07/2019 FINDINGS:Mild cardiomegaly. Mild vascular engorgement. No confluent infiltrate. ET tube and NG tube h ave been removed. IMPRESSION:Stable chest findings
[2019-04-08] MEDS: methylPREDNISolone Sod Succ 40 MG VIAL IVP SCH (08:30)
[2019-04-08] MEDS: Enoxaparin Sodium 40 MG/0.4 ML SYRINGE SC SCH (08:30)
[2019-04-08] MEDS: Famotidine/PF 20 mg/2ml Vial SLOW IVP SCH ×2 (08:30→21:15)
[2019-04-08] MEDS: Cefdinir 300 MG CAP PER TUBE SCH ×2 (08:30→21:16)
[2019-04-08] MEDS: Metoprolol Tartrate 100 MG TAB PER TUBE SCH ×2 (08:30→21:11)
[2019-04-08 08:50] LABS: Hemoglobin A1c 7.1 % (4.0-6.0)
[2019-04-08] MEDS: Insulin Glargine 10 UNITS in Pre-Filled Syringe 1 EACH SC SCH (09:29)
[2019-04-08 10:02] VITALS: BMI 32.8
--- NOTE | 2019-04-08 10:20 | PDOC.PN ---
- Subjective Encounter Start Date: 04/08/19 Encounter Start Time: 10:19 Ms. Morel was seen today in follow-up of Pyelonephritis, and ARDS. She was extubated yesterday, and is clincally stable. She does not have any complaints. She does have flat affect however. - Objective Resuscitation Status - Order Detail: 03/29/19 04:02 Resuscitation Status Routine Resuscitation Status: FULL: Full Resuscitation MAR Reviewed: Yes Vital Signs & Weight: Vital Signs (12 hours) Temp Pulse Pulse Pulse Resp BP BP 04/08/19 08:39 78 87 125/55 L 132/65 04/08/19 07:14 04/08/19 07:00 98.6 F 04/08/19 06:55 04/08/19 06:52 87 21 H 04/08/19 04:00 98.1 F 04/08/19 02:28 73 20 04/08/19 00:00 98.6 F 04/07/19 22:58 75 20 Pulse Ox Pulse Ox Pulse Ox 04/08/19 08:39 98 94 L 04/08/19 07:14 100 04/08/19 07:00 04/08/19 06:55 99 04/08/19 06:52 97 04/08/19 04:00 04/08/19 02:28 92 L 04/08/19 00:00 04/07/19 22:58 96 Weight Admit Weight 183 lb Weight 191 lb 5.78 oz Most Recent Monitor Data Heart Rate from ECG 79 NIBP 123/84 NIBP BP-Mean 97 Respiration from ECG 23 SpO2 97 I&O: 04/07/19 04/08/19 04/09/19 06:59 06:59 06:59 Intake Total 1658.5 916.2 100 Output Total 2421 3010 250 Balance -762.5 -2093.8 -150 Result Diagrams: 04/08/19 04:25 04/08/19 04:25 Additional Labs: Accuchecks 04/07/19 04/07/19 04/07/19 22:31 16:03 13:04 POC Glucose 128 H 179 H 197 H Phys Exam - Physical Examination HEENT: PERRLA Respiratory: no wheezing, no rales, no rhonchi, clear to auscultation bilateral Cardiovascular: RRR, no significant murmur, no rub Gastrointestinal: soft, non-tender, no distention, positive bowel sounds Musculoskeletal: no edema, pulses present Dx/Plan (1) Acute pyelonephritis Code(s): N10 - ACUTE PYELONEPHRITIS Status: Acute Comment: continue IV meropenem (2) Sepsis Code(s): A41.9 - SEPSIS, UNSPECIFIED ORGANISM Status: Acute Comment: continue IV meropenem. Vancomycin restarted. (3) ARDS (adult respiratory distress syndrome) Code(s): J80 - ACUTE RESPIRATORY DISTRESS SYNDROME Status: Acute (4) Hypertension Code(s): I10 - ESSENTIAL (PRIMARY) HYPERTENSION Status: Chronic Comment: controlled (5) Depression Code(s): F32.9 - MAJOR DEPRESSIVE DISORDER, SINGLE EPISODE, UNSPECIFIED Status : Chronic Comment: stable (6) Diabetes mellitus type 2 in obese Code(s): E11.69 - TYPE 2 DIABETES MELLITUS WITH OTHER SPECIFIED COMPLICATION; E66.9 - OBESITY, UNSPECIFIED Status: Chronic - Plan * Acute Pyelonephritis, with sepsis- improved * She is now on oral antibiotics- Omnicef * ARDS- resolved- she is extubated and hemodynamically stable * DM- blood glucose is stable * Depression- will re-start Zoloft * She is stable for transition to medical floor. * begin discharge planning
[2019-04-08] MEDS: HumaLOG 300 UNITS/3 ML VIAL SC PRN ×2 (11:07→16:07)
--- NOTE | 2019-04-08 11:48 | PRG ---
DATE OF SERVICE: 04/08/2019 SUBJECTIVE: Brigette Morel has no new complaints. She is very weak. She did eat breakfast up in a chair this morning. She has no complaints. OBJECTIVE: VITAL SIGNS: Heart rate 76, respiratory rate 19, oximetry is 94% on 4 L, blood pressure 134/52. LUNGS: Clear. HEART: Regular rhythm. S1, S2 normal. ABDOMEN: Soft and nontender. LABORATORY DATA: White count 9.9, hemoglobin 10.7, platelets 229. Sodium 139, potassium 3.9, chloride 96, bicarb 35, BUN 39, creatinine 0.78, glucose 129. IMPRESSION: 1. Status post mechanical ventilation for adult respiratory distress syndrome. 2. Critical illness weakness. 3. Pyelonephritis with bacteremia on admission. 4. 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 5. History of frequent urinary tract infections. She has been on Macrodantin in the past for suppression. 6. Chronic obstructive pulmonary disease without an exacerbation this admission. 7. Prerenal azotemia with iatrogenic intentional. Physical therapy start work whether she is stable to move out of the Critical Care Unit. Intake and output monitoring could continue. She is negative 2093 mL today. We will probably discontinue her IV Lasix tomorrow if she remained stable. Continue to monitor blood glucoses. We will take her off IV Medrol. We will continue with her nebulized treatments, but change those to q.4 while awake. Job ID: [id number]
[2019-04-08] MEDS: Pregabalin 75 MG CAP PO SCH (21:17)
[2019-04-09] MEDS: Furosemide 40 MG/4 ML VIAL SLOW IVP SCH (01:19)
[2019-04-09 07:22] LABS: Hemoglobin 11.6 g/dL (12.0-16.0); Mean Corpuscular HGB CONC 32.6 g/dL (32.0-36.0); Mean Corpuscular Hemoglobin 29.3 pg (27.0-31.0); Mean Platelet Volume 8.6 fL (7.4-10.4); Platelet Count 207 thou/uL (130-400); RBC Distribution Width 13.5 % (11.5-14.5); Red Blood Cell (RBC) Count 3.96 mill/uL (4.20-5.40); White Blood Cell (WBC) Count 10.4 thou/uL (4.8-10.8)
[2019-04-09 07:29] LABS: Anion Gap 16 mmol/L (10-20); BUN (Urea Nitrogen) 37 mg/dL (9.8-20.1); Calc. Creatinine Clearance 90 mL/min (70-130); Calcium 9.2 mg/dL (7.8-10.44); Carbon Dioxide 30 mmol/L (23-31); Chloride 96 mmol/L (98-107); Estimated GFR-MDRD 68; Glucose 137 mg/dL (80-115); Potassium 3.5 mmol/L (3.5-5.1); Sodium 138 mmol/L (136-145)
--- NOTE | 2019-04-09 08:03 | RAD ---
CHEST 1 VIEW: Date: 04/09/19 INDICATION: History of pneumonia. COMPARISON: Prior study dated 04/08/19 and 04/07/19. FINDINGS: A few mildly prominent air space opacities remain within the right upper lobe and right lower lobe, a s well as the left lower lobe, that appear similar to a comparison radiograph from 04/07/19 and 04/08. IMPRESSION: Slowly improving bilateral parenchymal opacities. Some residual opacities remain within the right upp er lobe, right lower lobe, and left lower lobe. Continued radiographic follow-up recommended. POS: [facility]O
[2019-04-09] MEDS: Insulin Glargine 10 UNITS in Pre-Filled Syringe 1 EACH SC SCH (08:43)
[2019-04-09] MEDS: Cefdinir 300 MG CAP PER TUBE SCH ×2 (08:43→20:28)
[2019-04-09] MEDS: Metoprolol Tartrate 100 MG TAB PER TUBE SCH ×2 (08:43→20:28)
[2019-04-09] MEDS: Enoxaparin Sodium 40 MG/0.4 ML SYRINGE SC SCH (08:43)
[2019-04-09] MEDS: Famotidine/PF 20 mg/2ml Vial SLOW IVP SCH (08:43)
[2019-04-09 10:05] LABS: Band 2 % (5-11); Eosinophils 2 % (0-10); Lymphocytes 30 % (21-51); MDiff Complete? YES; Monocytes 5 % (0-10); Neutrophil 58 % (42-75); RBC Morphology Normal
--- NOTE | 2019-04-09 15:18 | PRG ---
DATE OF SERVICE: 04/09/2019 SUBJECTIVE: Ms. Morel is being evaluated for placement in a skilled facility versus rehab. OBJECTIVE: VITAL SIGNS: She is afebrile. Heart rate 70, respiratory rate 16, oximetry is on 3 L, blood pressure 120/71. LUNGS: Clear. HEART: Regular rhythm. ABDOMEN: Soft and nontender. IMPRESSION: Pyelonephritis with clinical sepsis followed by adult respiratory distress syndrome requiring mechanical ventilation. She is several days out from extubation. Clinically, she is doing well. Her Lasix has been discontinued. She continues on her beta nam for her hypertension. LABORATORY DATA: White count 10.4, hemoglobin 11.6, platelets are 207,000. Sodium 138, potassium 3.5, chloride 96, bicarb 30, BUN 37, creatinine 0.84. PLAN: She is clinically stable at this time. She probably does not need to continue with daily lab. She is stable to go to rehab once a bed becomes available. Job ID: [id number]
--- NOTE | 2019-04-09 15:47 | PDOC.PN ---
- Subjective Encounter Start Date: 04/09/19 Encounter Start Time: 15:45 Ms. Morel was seen today in follow-up of Pyelonephritis and sepsis. She is beginning to feel better. She says she is extremely weak however. - Objective Resuscitation Status - Order Detail: 03/29/19 04:02 Resuscitation Status Routine Resuscitation Status: FULL: Full Resuscitation MAR Reviewed: Yes Vital Signs & Weight: Vital Signs (12 hours) Temp Pulse Resp BP Pulse Ox 04/09/19 14:19 70 16 100 04/09/19 10:07 73 16 99 04/09/19 08:47 98.1 F 81 18 120/71 100 04/09/19 08:00 100 04/09/19 07:03 73 16 94 L Weight Admit Weight 183 lb Weight 190 lb 4.143 oz Most Recent Monitor Data Heart Rate from ECG 84 NIBP 120/53 NIBP BP-Mean 75 Respiration from ECG 16 SpO2 93 I&O: 04/08/19 04/09/19 04/10/19 06:59 06:59 06:59 Intake Total 916.2 775 Output Total 3010 250 Balance -2093.8 525 Result Diagrams: 04/09/19 06:49 04/09/19 06:49 Additional Labs: Accuchecks 04/09/19 04/09/19 04/08/19 11:44 04:37 20:27 POC Glucose 168 H 160 H 153 H 04/08/19 04/08/19 16:07 11:04 POC Glucose 191 H 166 H Phys Exam - Physical Examination HEENT: PERRLA Respiratory: no wheezing, no rales, no rhonchi, clear to auscultation bilateral Cardiovascular: RRR, no significant murmur, no rub Gastrointestinal: soft, non-tender, no distention, positive bowel sounds Musculoskeletal: no edema, pulses present Dx/Plan (1) Acute pyelonephritis Code(s): N10 - ACUTE PYELONEPHRITIS Status: Acute Comment: continue IV meropenem (2) Sepsis Code(s): A41.9 - SEPSIS, UNSPECIFIED ORGANISM Status: Acute Comment: continue IV meropenem. Vancomycin restarted. (3) ARDS (adult respiratory distress syndrome) Code(s): J80 - ACUTE RESPIRATORY DISTRESS SYNDROME Status: Acute (4) Hypertension Code(s): I10 - ESSENTIAL (PRIMARY) HYPERTENSION Status: Chronic Comment: controlled (5) Depression Code(s): F32.9 - MAJOR DEPRESSIVE DISORDER, SINGLE EPISODE, UNSPECIFIED Status : Chronic Comment: stable (6) Diabetes mellitus type 2 in obese Code(s): E11.69 - TYPE 2 DIABETES MELLITUS WITH OTHER SPECIFIED COMPLICATION; E66.9 - OBESITY, UNSPECIFIED Status: Chronic - Plan * Acute Pyelonephritis with sepsis and ARDS- this is resolving * Continue Omnicef * She is now significantly deconditioned, however it is noted that she refuses to go to rehab, and wants to return home on discharge * Will monitor her a few more days in the hospital- likely home over the weekend or Friday.
[2019-04-09] MEDS ORDERED: Lorazepam 2 MG/ML VIAL SLOW IVP PRN (16:23)
[2019-04-09] MEDS: Lorazepam 0.5 MG TAB PO PRN ×2 (18:11→23:57)
[2019-04-09] MEDS: Famotidine 20 MG TAB PO SCH (20:28)
[2019-04-09] MEDS: Pregabalin 75 MG CAP PO SCH (20:29)
[2019-04-09] MEDS ORDERED: diphenhydrAMINE 50 MG/ML VIAL IVP SCH (23:15)
[2019-04-10] MEDS: Enoxaparin Sodium 40 MG/0.4 ML SYRINGE SC SCH (09:59)
[2019-04-10] MEDS: Famotidine 20 MG TAB PO SCH ×2 (09:59→21:09)
[2019-04-10] MEDS: Cefdinir 300 MG CAP PER TUBE SCH ×2 (09:59→21:08)
[2019-04-10] MEDS: Insulin Glargine 10 UNITS in Pre-Filled Syringe 1 EACH SC SCH (09:59)
[2019-04-10] MEDS: Metoprolol Tartrate 100 MG TAB PER TUBE SCH ×2 (10:01→21:09)
--- NOTE | 2019-04-10 14:59 | PDOC.PN ---
- Subjective Encounter Start Date: 04/10/19 Encounter Start Time: 14:56 Ms. Morel was seen today in follow-up of Pyelonephritis. with sepsis and ARDS. She is clinically improved. She would like to go home. - Objective Resuscitation Status - Order Detail: 03/29/19 04:02 Resuscitation Status Routine Resuscitation Status: FULL: Full Resuscitation MAR Reviewed: Yes Vital Signs & Weight: Vital Signs (12 hours) Temp Pulse Resp BP Pulse Ox 04/10/19 09:22 75 16 96 04/10/19 08:00 95 04/10/19 07:59 98.6 F 75 16 98/47 L 95 04/10/19 06:00 81 14 98 Weight Admit Weight 183 lb Weight 180 lb Most Recent Monitor Data Heart Rate from ECG 84 NIBP 120/53 NIBP BP-Mean 75 Respiration from ECG 16 SpO2 93 I&O: 04/09/19 04/10/19 04/11/19 06:59 06:59 06:59 Intake Total 775 1370 240 Output Total 250 Balance 525 1370 240 Result Diagrams: 04/09/19 06:49 04/09/19 06:49 Additional Labs: Accuchecks 04/10/19 04/10/19 04/09/19 11:50 05:39 16:34 POC Glucose 178 H 122 H 151 H Phys Exam - Physical Examination HEENT: PERRLA Respiratory: no wheezing, no rales, no rhonchi, clear to auscultation bilateral Cardiovascular: RRR, no significant murmur, no rub Gastrointestinal: soft, non-tender, no distention, positive bowel sounds Musculoskeletal: no edema Dx/Plan (1) Acute pyelonephritis Code(s): N10 - ACUTE PYELONEPHRITIS Status: Acute Comment: continue IV meropenem (2) Sepsis Code(s): A41.9 - SEPSIS, UNSPECIFIED ORGANISM Status: Acute Comment: continue IV meropenem. Vancomycin restarted. (3) ARDS (adult respiratory distress syndrome) Code(s): J80 - ACUTE RESPIRATORY DISTRESS SYNDROME Status: Acute (4) Hypertension Code(s): I10 - ESSENTIAL (PRIMARY) HYPERTENSION Status: Chronic Comment: controlled (5) Depression Code(s): F32.9 - MAJOR DEPRESSIVE DISORDER, SINGLE EPISODE, UNSPECIFIED Status : Chronic Comment: stable (6) Diabetes mellitus type 2 in obese Code(s): E11.69 - TYPE 2 DIABETES MELLITUS WITH OTHER SPECIFIED COMPLICATION; E66.9 - OBESITY, UNSPECIFIED Status: Chronic - Plan * Pyelonephritis- improved- continue Omnicef * HTN- blood pressure is stable * DM- blood glucose is stable * Will arrange for Home Health, and then she can be discharged home. * Discussed the plan with the patient's daughter.
--- NOTE | 2019-04-10 15:54 | PRG ---
DATE OF SERVICE: 04/10/2019 SUBJECTIVE: Ms. Morel says she is feeling better every day. She is not complaining of left hip pain. She thinks she might have fallen before she was admitted to the hospital. She is not sure about that; however. She was confused when she was admitted. OBJECTIVE: VITAL SIGNS: On exam, she is afebrile, heart rate 75, respiratory rate 16, oximetry is 96% on 2 L, and blood pressure 98/47. LUNGS: Clear. HEART: Regular rhythm. ABDOMEN: Soft and nontender. EXTREMITIES: Her lateral aspect of her left hip is tender. LABORATORY DATA: White count 10.4, hemoglobin 11.6, and platelets 207,000 yesterday. There is no new electrolytes today. IMPRESSION AND PLAN: Hip pain of unclear etiology. I doubt she has a deep venous thrombosis, but given her prolonged illness, I ordered Doppler venous ultrasound of her left lower extremity. We will order hip films as well. Job ID: [id number]
--- NOTE | 2019-04-10 16:23 | RAD ---
LEFT HIP TWO VIEWS: 04/10/19 HISTORY: Fall. Pain. FINDINGS: The visualized bony pelvis and sacrum are unremarkable. Contour of the femoral head is maintained. Joint space is preserved. IMPRESSION: No fracture. If the patient is unable to bear weight, CT can be performed. POS: MAAME
[2019-04-10] MEDS: HumaLOG 300 UNITS/3 ML VIAL SC PRN (16:49)
[2019-04-10] MEDS: Pregabalin 75 MG CAP PO SCH (21:10)
--- NOTE | 2019-04-10 23:26 | ULT ---
EXAM: LEFT LOWER EXTREMITY VENOUS ULTRASOUND WITH DOPPLER: 04/10/19 HISTORY: Pain. COMPARISON: None. TECHNIQUE: Eldridge scale, color flow, Doppler imaging with spectral waveform analysis performed in the left lower e xtremity venous system. FINDINGS: There is compressibility, presence of flow and augmentation of the common femoral vein, femoral vein, and popliteal vein. Flow in the greater saphenous vein, profunda vein and posterior tibial vein. The re is flow in the anterior tibial vein. IMPRESSION: No evidence of thrombus in the left lower extremity deep venous system. POS: MARICEL
[2019-04-11] MEDS ORDERED: diphenhydrAMINE 25 MG CAP PO SCH (02:15)
[2019-04-11] MEDS: Enoxaparin Sodium 40 MG/0.4 ML SYRINGE SC SCH (08:14)
[2019-04-11] MEDS: Insulin Glargine 10 UNITS in Pre-Filled Syringe 1 EACH SC SCH (08:14)
[2019-04-11] MEDS: Cefdinir 300 MG CAP PER TUBE SCH (08:14)
[2019-04-11] MEDS: Famotidine 20 MG TAB PO SCH (08:14)
[2019-04-11] MEDS: Metoprolol Tartrate 100 MG TAB PER TUBE SCH (08:14)
--- NOTE | 2019-04-11 11:16 | PDOC.PN ---
- Subjective Encounter Start Date: 04/11/19 Encounter Start Time: 11:14 Ms. Morel was seen today in follow-up. she says she wants to go home. She does not have any complaints. - Objective Resuscitation Status - Order Detail: 03/29/19 04:02 Resuscitation Status Routine Resuscitation Status: FULL: Full Resuscitation MAR Reviewed: Yes Vital Signs & Weight: Vital Signs (12 hours) Temp Pulse Resp BP Pulse Ox 04/11/19 09:27 93 16 93 L 04/11/19 08:30 98.4 F 76 18 110/63 96 04/11/19 05:59 76 16 91 L 04/11/19 05:35 98.2 F 76 15 104/69 92 L 04/11/19 00:36 98.2 F 74 15 107/68 93 L Weight Admit Weight 183 lb Weight 182 lb 4 oz Most Recent Monitor Data Heart Rate from ECG 84 NIBP 120/53 NIBP BP-Mean 75 Respiration from ECG 16 SpO2 93 I&O: 04/10/19 04/11/19 04/12/19 06:59 06:59 06:59 Intake Total 1370 960 Balance 1370 960 Result Diagrams: 04/09/19 06:49 04/09/19 06:49 Additional Labs: Accuchecks 04/11/19 04/10/19 04/10/19 04:33 20:15 16:15 POC Glucose 141 H 151 H 195 H 04/10/19 11:50 POC Glucose 178 H Phys Exam - Physical Examination HEENT: PERRLA Respiratory: no wheezing, no rales, no rhonchi, clear to auscultation bilateral Cardiovascular: RRR, no significant murmur, no rub Gastrointestinal: soft, non-tender, no distention, positive bowel sounds Musculoskeletal: pulses present, edema present trace pedal edema Dx/Plan (1) Acute pyelonephritis Code(s): N10 - ACUTE PYELONEPHRITIS Status: Acute Comment: continue IV meropenem (2) Sepsis Code(s): A41.9 - SEPSIS, UNSPECIFIED ORGANISM Status: Acute Comment: continue IV meropenem. Vancomycin restarted. (3) ARDS (adult respiratory distress syndrome) Code(s): J80 - ACUTE RESPIRATORY DISTRESS SYNDROME Status: Acute (4) Hypertension Code(s): I10 - ESSENTIAL (PRIMARY) HYPERTENSION Status: Chronic Comment: controlled (5) Depression Code(s): F32.9 - MAJOR DEPRESSIVE DISORDER, SINGLE EPISODE, UNSPECIFIED Status : Chronic Comment: stable (6) Diabetes mellitus type 2 in obese Code(s): E11.69 - TYPE 2 DIABETES MELLITUS WITH OTHER SPECIFIED COMPLICATION; E66.9 - OBESITY, UNSPECIFIED Status: Chronic - Plan * Acute Pyelonephritis- improved * Sepsis and ARDS has resolved * Hip pain- Possible muscle strian- X-ray of the hip, and venous doppler results were noted * Stable for discharge home with Home health and PT.
[2019-04-11] MEDS: HumaLOG 300 UNITS/3 ML VIAL SC PRN (11:56)
--- NOTE | 2019-04-11 15:15 | PRG ---
DATE OF SERVICE: 04/11/2019 SUBJECTIVE: Ms. Dash did well overnight. She has no complaints. Her vascular ultrasound was negative for clot in her leg. Her hip x-ray showed no fracture of her hip. OBJECTIVE: VITAL SIGNS: She is afebrile, heart rate 76, respiratory rate is 18, and oximetry 95%. LUNGS: Clear. HEART: Regular rhythm. ABDOMEN: Soft and nontender. EXTREMITIES: Without edema. She is tentatively scheduled to be discharged I am told. IMPRESSION: Pyelonephritis secondary to Escherichia coli with subsequent development of adult respiratory distress syndrome leading to intubation. She is clinically stabilized and is mainly weak at this time. I have encouraged her to exercise and start walking when she gets home. She should complete 14 days of antimicrobial therapy. We will sign off. Job ID: [id number]
[2019-04-11 16:29] VITALS: BP 114/71; TEMP 97.8
--- NOTE | 2019-04-11 23:02 | DIS ---
DATE OF ADMISSION: 03/29/2019 DATE OF DISCHARGE: 04/11/2019 PRIMARY CARE PHYSICIAN: Dr. Janie Schaefer. DISCHARGE DISPOSITION: Home with home health. DISCHARGE DIAGNOSES: 1. Acute pyelonephritis with sepsis. 2. Adult respiratory distress syndrome secondary to #1. 3. Diabetes mellitus type 2 which is diet controlled. 4. Hypertension. 5. Chronic obstructive pulmonary disease. DISCHARGE MEDICATIONS: 1. Omnicef 300 mg twice a day for 5 more days. 2. Flexeril 5 mg t.i.d. 3. Lopressor 100 mg twice a day. 4. Zoloft 50 mg at bedtime. 5. Ranitidine 150 mg daily. 6. Lyrica at bedtime. 7. Albuterol inhaler 2 puffs as needed. 8. Tylenol No.3 1-2 tablets q.6 as needed. TESTS DONE DURING THE ADMISSION: The patient had a CT scan of the brain on admission, which showed no evidence of any acute intracranial process. The patient also had a CT scan of the abdomen and pelvis, in which findings were suspicious for left-sided pyelonephritis. There was evidence of fatty liver and a left renal cyst. The patient also had an echocardiogram demonstrated an ejection fraction estimated at 60% to 65%. There was grade 1/3 diastolic dysfunction. There was some aortic valve sclerosis. Elevated right ventricular systolic pressure estimated at 46 mmHg. CODE STATUS: Full code. ALLERGIES: LEVOFLOXACIN AND SULFA. HOSPITAL COURSE: Ms. Morel is a pleasant 68-year-old female, who presented to the emergency room after her daughter noted that she was confused and having hallucinations. She was evaluated and found to have pyelonephritis. She was admitted and started on IV antibiotics. During the course of her admission, she decompensated and developed ARDS. She was intubated and remained intubated for several days during her hospital stay. She was seen by the Pulmonary Critical Care team. The ARDS was suspected to be due to the pyelonephritis. Her urine cultures grew E coli and her antibiotics were eventually tailored to the sensitivities. She was able to be extubated successfully and then transitioned to the medical floor, where she continued to improve. She did have some evidence of metabolic encephalopathy likely due to the acute illness, which also improved during the course of her hospital stay. She will be discharged to nursing home today. Job ID: [id number]
== END 2019-04-11 16:34 | disposition home health service (06) | DRG 870 ==
LOC: ERS 20:07 → SJJU 03-29 00:09 → IMCU/EMU 03-29 21:22 → CCU 04-01 01:29 → T4-A 04-08 21:02
PROVIDERS: ADMIT Hospitalist; ATTEND Hospitalist
PROC: 5A1955Z Respiratory Ventilation, Greater than 96 Consecutive Hours (ICD-10-PCS; principal; 2019-04-01)
PROC: 0B9D8ZX Drainage of Right Middle Lung Lobe, Via Natural or Artificial Opening Endoscopic, Diagnostic (ICD-10-PCS; 2019-04-01)
PROC: 0BH17EZ Insertion of Endotracheal Airway into Trachea, Via Natural or Artificial Opening (ICD-10-PCS; 2019-04-01)
DX: A41.51 Sepsis due to Escherichia coli [E. coli] (principal); G93.41 Metabolic encephalopathy; J80 Acute respiratory distress syndrome; J81.0 Acute pulmonary edema; E87.3 Alkalosis; N10 Acute pyelonephritis; I10 Essential (primary) hypertension; K21.9 Gastro-esophageal reflux disease without esophagitis; J44.9 Chronic obstructive pulmonary disease, unspecified; F32.9 Major depressive disorder, single episode, unspecified; F17.210 Nicotine dependence, cigarettes, uncomplicated; E11.65 Type 2 diabetes mellitus with hyperglycemia; E11.69 Type 2 diabetes mellitus with other specified complication; E66.9 Obesity, unspecified; Z68.31 Body mass index [BMI] 31.0-31.9, adult; Z87.440 Personal history of urinary (tract) infections; Z88.1 Allergy status to other antibiotic agents; Z88.2 Allergy status to sulfonamides; Z79.899 Other long term (current) drug therapy
CPT/HCPCS: 36415; 36416; 51701; 70450; 71045; 74177; 80048; 80053; 80306; 80307; 81003; 81015; 82140; 82805; 83036; 83605; 83880; 84100; 85025; 85610; 87040; 87070; 87077; 87086; 87149; 87186; 87804; 93005; 93010; 93306; 94002; 94003; 94640; 96361; 96365; 96366; 96367; A4353; J0330; J1120; J1200; J1630; J1650; J1825; J1940; J2185; J2270; J2543; J2704; J2920; J3010; J3370; J3490; J7050; J7620; Q0162; Q0163; Q9966; S0028

== ENCOUNTER 2020-01-11 15:23 | Emergency (ER) | payer MEDICARE ==
[2020-01-11] MEDS ORDERED: Ondansetron ODT 4 MG TAB ONE (16:00)
[2020-01-11] MEDS ORDERED: Morphine 4 MG/ML VIAL ONE (16:00)
== END 2020-01-11 16:22 | disposition home or self-care (01) ==
LOC: ERS 15:23
DX: G89.29 Other chronic pain (principal); M25.511 Pain in right shoulder; K21.9 Gastro-esophageal reflux disease without esophagitis; I10 Essential (primary) hypertension; J44.9 Chronic obstructive pulmonary disease, unspecified; E78.5 Hyperlipidemia, unspecified; E11.9 Type 2 diabetes mellitus without complications; F32.9 Major depressive disorder, single episode, unspecified; F41.9 Anxiety disorder, unspecified; F17.210 Nicotine dependence, cigarettes, uncomplicated; Z79.899 Other long term (current) drug therapy
CPT/HCPCS: 96372; 99283; J2270; Q0162

== ENCOUNTER 2020-10-15 18:57 | Emergency (ER) | payer MEDICARE | END 2020-10-15 19:28 | disposition left against medical advice (07) | LOC: ERS 18:57 | DX: Z53.21 Procedure and treatment not carried out due to patient leaving prior to being seen by health care provider (principal) ==